=== PATIENT | female | born 1955 | race African-American/Black ===

== ENCOUNTER → 2018-01-27 | Day surgery (SDC) | payer BC ==
[~2018-01-27] MED LIST: LIDOCAINE 1% PF 2 ML VIAL. ID; LIDOCAINE 2% PF Vial for OR 5 ML VIAL.; MORPHINE SULFATE 2 MG/ML DISP.SYRIN. IV; ONDANSETRON PF 4 MG/2 ML VIAL. IV; PROCHLORPERAZINE 10 MG/2 ML VIAL. IV; PROPOFOL 40 ML IV; fentaNYL PF VIAL 100 MCG/2 ML VIAL IV
[2018-01-27] MEDS: IV RINGERS,LACTATED 1000ML 1,000 ML IV (09:12)
== END | disposition home or self-care (01) ==
LOC: ENDOS 08:23
DX: C18.3 Malignant neoplasm of hepatic flexure (principal); K64.0 First degree hemorrhoids; D50.0 Iron deficiency anemia secondary to blood loss (chronic); I10 Essential (primary) hypertension; K21.9 Gastro-esophageal reflux disease without esophagitis; Z87.891 Personal history of nicotine dependence; Z79.899 Other long term (current) drug therapy; Z88.0 Allergy status to penicillin; Z83.3 Family history of diabetes mellitus; M19.90 Unspecified osteoarthritis, unspecified site; Z72.89 Other problems related to lifestyle
CPT/HCPCS: 45380; 45385; 88305; J2001; J2704

== ENCOUNTER → 2018-02-20 | Outpatient (CLI) | payer BC ==
[2018-02-20 13:35] LABS: ADD MAN DIFF? NO
[2018-02-20 13:41] LABS: BASO % 1 % (0-3); EOS % 1 % (0-3); HEMATOCRIT 38.7 % (36.0-47.0); HEMOGLOBIN 12.8 g/dL (12.0-15.5); LYMPH % 30 % (24-48); MEAN CORPUSCULAR HEMOGLOBIN 27 pg (25-35); MEAN CORPUSCULAR HGB CONC 33 g/dL (31-37); MEAN CORPUSCULAR VOLUME 82 fL (79-100); MONO # 0.3 x10^3/uL (0.0-1.1); MONO % 5 % (0-9); NEUT # 4.2 x10^3uL (1.8-7.7); NEUT % 64 % (31-73); PLATELET COUNT 262 x10^3/uL (140-400); RED BLOOD COUNT 4.74 x10^6/uL (3.50-5.40); RED CELL DISTRIBUTION WIDTH 27.1 % (11.5-14.5); WHITE BLOOD COUNT 6.6 x10^3/uL (4.0-11.0)
[2018-02-20 13:49] LABS: ANION GAP 8 (6-14); BLOOD UREA NITROGEN 18 mg/dL (7-20); CARBON DIOXIDE 30 mmol/L (21-32); CHLORIDE 101 mmol/L (98-107); CREATININE 0.9 mg/dL (0.6-1.0); GFR 76.3; GLUCOSE 94 mg/dL (70-99); POTASSIUM 3.1 mmol/L (3.5-5.1); SODIUM 139 mmol/L (136-145)
[2018-02-20 14:43] LABS: ANISOCYTOSIS MARKED; PLT ESTIMATE ADEQUATE (ADEQUATE); SCHISTOCYTES OCC
== END | disposition home or self-care (01) ==
LOC: SURGPAT 11:50
DX: Z01.818 Encounter for other preprocedural examination (principal); C18.9 Malignant neoplasm of colon, unspecified; I45.19 Other right bundle-branch block; R94.31 Abnormal electrocardiogram [ECG] [EKG]
CPT/HCPCS: 36415; 80048; 85025; 93005

== ENCOUNTER → 2018-03-01 | Outpatient (CLI) | payer BC ==
[2018-03-01] MEDS: REGADENOSON 0.4 MG/5 ML DISP.SYRIN. IV (12:01)
== END | disposition home or self-care (01) ==
LOC: NM 15:26
DX: I36.1 Nonrheumatic tricuspid (valve) insufficiency (principal); I10 Essential (primary) hypertension; D50.9 Iron deficiency anemia, unspecified; E87.6 Hypokalemia; Z87.11 Personal history of peptic ulcer disease; Z87.891 Personal history of nicotine dependence
CPT/HCPCS: 78452; 93017; 93306; 96374; 96375; 96376; A9500; J2785

== ENCOUNTER 2018-03-17 05:56 | Inpatient (IN) | payer BC, MEDICARE ==
[~2018-03-17] VITALS: Ht 180.3 cm; Wt 67.1 kg
[2018-03-17] VITALS (18 sets, daily range): BP systolic 101–137; BP diastolic 52–81
[~2018-03-17 05:56] MED LIST changes: +BUT/APAP/CAF PO; +BUTA1CAP57 PO; +CYCL10TA2 PO; +HYDR12.53 PO; -LIDOCAINE 1% PF 2 ML VIAL. ID; -LIDOCAINE 2% PF Vial for OR 5 ML VIAL.; +METO25TA4 PO; -MORPHINE SULFATE 2 MG/ML DISP.SYRIN. IV; +OMEP40CA5 PO; -ONDANSETRON PF 4 MG/2 ML VIAL. IV; +POTA10TA12 PO; -PROCHLORPERAZINE 10 MG/2 ML VIAL. IV; -PROPOFOL 40 ML IV; +TRAM50TA PO; -fentaNYL PF VIAL 100 MCG/2 ML VIAL IV
[2018-03-17] MEDS ORDERED: fentaNYL PF VIAL 100 MCG/2 ML VIAL IV PRN (07:00)
[2018-03-17] MEDS ORDERED: PROCHLORPERAZINE 10 MG/2 ML VIAL. IV PRN (07:00)
[2018-03-17] MEDS ORDERED: LIDOCAINE 1% PF 2 ML VIAL. ID PRN (07:00)
[2018-03-17] MEDS ORDERED: IV RINGERS,LACTATED 1000ML 1,000 ML IV SCH (07:00)
[2018-03-17] MEDS ORDERED: ONDANSETRON PF 4 MG/2 ML VIAL. IV PRN ×2 (07:00→09:45)
[2018-03-17] MEDS ORDERED: SEVOFLURANE > 120 MINUTES. IH ONE (07:26)
[2018-03-17] MEDS ORDERED: DEXAMETHASONE SOD PHOS 20 MG/5 ML VIAL. ONE (07:27)
[2018-03-17] MEDS ORDERED: ONDANSETRON PF 4 MG/2 ML VIAL. ONE (07:27)
[2018-03-17] MEDS ORDERED: PROPOFOL 20 ML IV ONE (07:27)
[2018-03-17] MEDS ORDERED: LIDOCAINE 2% PF Vial for OR 5 ML VIAL. ONE (07:27)
[2018-03-17] MEDS ORDERED: ROCURONIUM 100 MG/10 ML VIAL. ONE (07:27)
[2018-03-17] MEDS ORDERED: NEOSTIGMINE METHYLSULFATE 5 MG/5 ML SYRINGE. ONE (07:27)
[2018-03-17] MEDS ORDERED: GLYCOPYRROLATE 1 MG/5 ML VIAL. ONE (07:27)
[2018-03-17] MEDS ORDERED: fentaNYL PF VIAL 100 MCG/2 ML VIAL ONE ×2 (07:27→08:44)
[2018-03-17] MEDS ORDERED: MIDAZOLAM HCL/PF 2 MG/2 ML VIAL. ONE (07:27)
[2018-03-17] MEDS ORDERED: KETOROLAC 30 MG/ML INJ FOR OR. INJ ONE (07:28)
[2018-03-17] MEDS ORDERED: PHENYLEPHRINE in 0.9% NACL PF 1 MG/10 ML SYRINGE. IV ONE (07:28)
[2018-03-17] MEDS ORDERED: BUPIVACAINE-EPI 0.25%-1:200000 50 ML VIAL. ONE (08:16)
[2018-03-17] MEDS ORDERED: SEVOFLURANE 61 TO 120 MINUTES. IH ONE (09:16)
[2018-03-17] MEDS ORDERED: oxyCODONE/APAP 5/325 1 TAB TABLET PO PRN (09:45)
[2018-03-17] MEDS ORDERED: 0.9 % SODIUM CHLORIDE 10 ML DISP.SYRIN. IV PRN (09:45)
[2018-03-17] MEDS: MORPHINE SULFATE 2 MG/ML VIAL. IV PRN ×4 (09:46→16:22)
--- NOTE | 2018-03-17 09:48 | PDOC4 ---
Operative Note Operative Note Date: 03/17/2018 Preoperative diagnosis: Right colon cancer hepatic flexure Postoperative diagnosis: Same Procedure: Extended right hemicolectomy with primary anastomosis Surgeon: Kiko Mccann Asst.: Braulio Salamanca Specimen: Right colon Dictation: Patient is a 63-year-old female had undergone a colonoscopy was found to have a Apple core lesion at the hepatic flexure this was tattooed at the time procedure of exploratory laparotomy with right colon resection was explained to the patient detail was benefits were also discussed including bleeding infection alternatives to this procedure also discussed with patient seemed understanding gave both verbal and written consent to have the procedure performed. As taken to the operating room placed in supine position general anesthesia was initiated once patient was asleep and intubated her abdomen was prepped and draped in usual sterile fashion using ChloraPrep midline incision was made with a 10 blade scalpel was carried down through the subcutaneous tissue using electrocautery right hemostasis to the fascia fascia was opened electrocautery full length the incision area the abdomen was inspected the liver was palpated no masses were noted. The tumor was palpated at the hepatic flexure right colon was taken down from the white line of [place] with electrocautery freeing up the colon to be brought to the midline a ROSLYN stapler is used to staple and transect the terminal ileum a second load was used to staple and transect the proximal transverse the mesentery was then taken down with the impact LigaSure to the right colon branch of the aorta which was tied with 2-0 silk tie and transected. Specimen was sent for pathology the terminal ileum and mid transverse colon were anastomosed with a side to side stapled anastomosis staple line was oversewn with Vicryl Lembert sutures and the mesentery was closed with a running 3-0 Vicryl suture. The abdomen was then irrigated and suctioned dry fascia was closed with running O looped PDS and the skin reapproximated 4-0 subcuticular Monocryl. Mastisol Steri-Strips and island dressing were applied. Patient was waken expanded in the operating room taken recovery in stable condition all sponge instrument needle counts listed as correct estimated blood loss 30 mL. IRENE DAVIS MD Mar 17, 2018 09:48
[2018-03-17] MEDS: fentaNYL PF VIAL 100 MCG/2 ML VIAL IV PRN ×4 (09:52→10:24)
[2018-03-17] MEDS: IV DEXTROSE 5%-LACT RINGERS 1,000 ML IV SCH (11:57)
[2018-03-17] MEDS: KETOROLAC 15 MG/ML VIAL. IV SCH ×2 (11:57→18:00)
[2018-03-18] MEDS: KETOROLAC 15 MG/ML VIAL. IV SCH ×5 (00:03→23:21)
[2018-03-18 03:00] VITALS: BP 128/76
[2018-03-18] MEDS: IV DEXTROSE 5%-LACT RINGERS 1,000 ML IV SCH ×3 (04:31→20:50)
[2018-03-18] MEDS: MORPHINE SULFATE 2 MG/ML VIAL. IV PRN (04:36)
[2018-03-18 06:03] LABS: BASO % 0 % (0-3); EOS % 0 % (0-3); HEMATOCRIT 35.3 % (36.0-47.0); HEMOGLOBIN 11.5 g/dL (12.0-15.5); LYMPH # 1.5 x10^3/uL (1.0-4.8); LYMPH % 9 % (24-48); MEAN CORPUSCULAR HEMOGLOBIN 28 pg (25-35); MEAN CORPUSCULAR HGB CONC 33 g/dL (31-37); MEAN CORPUSCULAR VOLUME 84 fL (79-100); MONO # 0.9 x10^3/uL (0.0-1.1); MONO % 6 % (0-9); NEUT # 13.6 x10^3uL (1.8-7.7); NEUT % 85 % (31-73); PLATELET COUNT 288 x10^3/uL (140-400); RED BLOOD COUNT 4.18 x10^6/uL (3.50-5.40)
[2018-03-18 07:00] VITALS: BP 124/71
[2018-03-18 09:50] LABS: % BANDS 3 % (0-9); % LYMPHS 14 % (24-48); % MONOS 3 % (0-10); % SEGS 80 % (35-66)
[2018-03-18 09:51] LABS: PLT ESTIMATE ADEQUATE (ADEQUATE)
[2018-03-18 09:52] LABS: ANISOCYTOSIS MOD; OVALOCYTES FEW; POIKILOCYTOSIS PRESENT
[2018-03-18 11:00] VITALS: BP 136/77
--- NOTE | 2018-03-18 11:21 | PDOC ---
PROGRESS NOTES Subjective Subjective doing pretty well, sore, states she's passing gas Objective Objective Vital Signs Date Time Temp Pulse Resp B/P (MAP) Pulse Ox O2 Delivery O2 Flow Rate FiO2 03/18/18 07:00 97.8 97 18 124/71 (88) 99 Room Air 97.8 03/17/18 10:01 10.0 Intake and Output 03/18/18 07:00 Intake Total 3530 ml Output Total 715 ml Balance 2815 ml Intake Oral 30 ml IV Total 2600 ml Other 900 ml Output Urine Total 685 ml Estimated Blood Loss 30 ml Physical Exam Abdomen: Soft (tender with palpation) Assessment Assessment POD 1 right colectomy Plan Plan of Care Ice chips, sips H20, postop care Comment Review of Relevant I have reviewed the following items todd (where applicable) has been applied. Labs Laboratory Tests Test 03/17/18 06:45 03/18/18 05:05 Potassium Level 3.2 mmol/L (3.5-5.1) White Blood Count 16.0 x10^3/uL (4.0-11.0) Red Blood Count 4.18 x10^6/uL (3.50-5.40) Hemoglobin 11.5 g/dL (12.0-15.5) Hematocrit 35.3 % (36.0-47.0) Mean Corpuscular Volume 84 fL (79-100) Mean Corpuscular Hemoglobin 28 pg (25-35) Mean Corpuscular Hemoglobin Concent 33 g/dL (31-37) Red Cell Distribution Width 22.0 % (11.5-14.5) Platelet Count 288 x10^3/uL (140-400) Neutrophils (%) (Auto) 85 % (31-73) Lymphocytes (%) (Auto) 9 % (24-48) Monocytes (%) (Auto) 6 % (0-9) Eosinophils (%) (Auto) 0 % (0-3) Basophils (%) (Auto) 0 % (0-3) Neutrophils # (Auto) 13.6 x10^3uL (1.8-7.7) Lymphocytes # (Auto) 1.5 x10^3/uL (1.0-4.8) Monocytes # (Auto) 0.9 x10^3/uL (0.0-1.1) Eosinophils # (Auto) 0.0 x10^3/uL (0.0-0.7) Basophils # (Auto) 0.0 x10^3/uL (0.0-0.2) Segmented Neutrophils % 80 % (35-66) Band Neutrophils % 3 % (0-9) Lymphocytes % 14 % (24-48) Monocytes % 3 % (0-10) Platelet Estimate Adequate (ADEQUATE) Large Platelets Present Poikilocytosis Present Anisocytosis Mod Ovalocytes Few Laboratory Tests Test 03/18/18 05:05 White Blood Count 16.0 x10^3/uL (4.0-11.0) Red Blood Count 4.18 x10^6/uL (3.50-5.40) Hemoglobin 11.5 g/dL (12.0-15.5) Hematocrit 35.3 % (36.0-47.0) Mean Corpuscular Volume 84 fL (79-100) Mean Corpuscular Hemoglobin 28 pg (25-35) Mean Corpuscular Hemoglobin Concent 33 g/dL (31-37) Red Cell Distribution Width 22.0 % (11.5-14.5) Platelet Count 288 x10^3/uL (140-400) Neutrophils (%) (Auto) 85 % (31-73) Lymphocytes (%) (Auto) 9 % (24-48) Monocytes (%) (Auto) 6 % (0-9) Eosinophils (%) (Auto) 0 % (0-3) Basophils (%) (Auto) 0 % (0-3) Neutrophils # (Auto) 13.6 x10^3uL (1.8-7.7) Lymphocytes # (Auto) 1.5 x10^3/uL (1.0-4.8) Monocytes # (Auto) 0.9 x10^3/uL (0.0-1.1) Eosinophils # (Auto) 0.0 x10^3/uL (0.0-0.7) Basophils # (Auto) 0.0 x10^3/uL (0.0-0.2) Segmented Neutrophils % 80 % (35-66) Band Neutrophils % 3 % (0-9) Lymphocytes % 14 % (24-48) Monocytes % 3 % (0-10) Platelet Estimate Adequate (ADEQUATE) Large Platelets Present Poikilocytosis Present Anisocytosis Mod Ovalocytes Few Medications Current Medications Prochlorperazine Edisylate (Compazine) 5 mg PACU PRN PRN IV NAUSEA, MRX1; Start 03/17/18 at 07:00; Stop 03/18/18 at 06:59; Status DC Lidocaine HCl (Xylocaine-Mpf 1% Vial) 2 ml PRN 1X PRN ID IV START; Start at 07:00; Stop 03/18/18 at 06:59; Status DC Ringer's Solution 1,000 ml @ 30 mls/hr Q24H IV Last administered on 03/17/18at 06:55; Start 03/17/18 at 07:00; Stop 03/17/18 at 18:59; Status DC Morphine Sulfate (Morphine Sulfate) 1 mg PRN Q10MIN PRN IV SEVERE PAIN Last administered on 03/17/18at 10:18; Start 03/17/18 at 07:00; Stop 03/18/18 at 06:59 ; Status DC Fentanyl Citrate (Fentanyl 2ml Vial) 50 mcg PRN Q5MIN PRN IV MODERATE TO SEVERE PAIN Last administered on 03/17/18at 10:24; Start 03/17/18 at 07:00; Stop 03/18/18 at 06:59; Status DC Fentanyl Citrate (Fentanyl 2ml Vial) 25 mcg PRN Q5MIN PRN IV MILD PAIN; Start 03/17/18 at 07:00; Stop 03/18/18 at 06:59; Status DC Ondansetron HCl (Zofran) 4 mg PRN Q6HRS PRN IV NAUSEA/VOMITING Last administered on 03/17/18at 11:57; Start 03/17/18 at 07:00; Stop 03/18/18 at 06:59 ; Status DC Levofloxacin/ Dextrose 100 ml @ 100 mls/hr 1X PREOP PRN IV PRIOR TO SURGERY Last administered on 03/17/18at 08:17; Start 03/17/18 at 08:00 Levofloxacin/ Dextrose 100 ml @ As Directed STK-MED ONCE IV ; Start 03/17/18 at 06:27; Stop 03/17/18 at 06:28; Status DC Sevoflurane (Ultane) 90 ml STK-MED ONCE IH ; Start 03/17/18 at 07:26; Stop 03/17 at 07:27; Status DC Rocuronium [place] (Zemuron) 100 mg STK-MED ONCE .ROUTE ; Start 03/17/18 at 07: 27; Stop 03/17/18 at 07:28; Status DC Fentanyl Citrate (Fentanyl 2ml Vial) 100 mcg STK-MED ONCE .ROUTE ; Start at 07:27; Stop 03/17/18 at 07:28; Status DC Neostigmine Methylsulfate (Neostigmine Methylsulfate) 5 mg STK-MED ONCE .ROUTE ; Start 03/17/18 at 07:27; Stop 03/17/18 at 07:28; Status DC Midazolam HCl (Versed) 2 mg STK-MED ONCE .ROUTE ; Start 03/17/18 at 07:27; Stop 03/17/18 at 07:28; Status DC Glycopyrrolate (Robinul) 1 mg STK-MED ONCE .ROUTE ; Start 03/17/18 at 07:27; Stop 03/17/18 at 07:29; Status DC Propofol 20 ml @ As Directed STK-MED ONCE IV ; Start 03/17/18 at 07:27; Stop 05/25 at 07:29; Status DC Lidocaine HCl (Lidocaine Pf 2% Vial) 5 ml STK-MED ONCE .ROUTE ; Start 03/17/18 at 07:27; Stop 03/17/18 at 07:29; Status DC Dexamethasone Sodium Phosphate (Decadron) 20 mg STK-MED ONCE .ROUTE ; Start 05/25 at 07:27; Stop 03/17/18 at 07:29; Status DC Ondansetron HCl (Zofran) 4 mg STK-MED ONCE .ROUTE ; Start 03/17/18 at 07:27; Stop 03/17/18 at 07:29; Status DC Ketorolac Tromethamine (Toradol For Or Only) 30 mg STK-MED ONCE INJ ; Start 05/25 at 07:28; Stop 03/17/18 at 07:29; Status DC Phenylephrine HCl (PHENYLEPHRINE in 0.9% NACL PF) 1 mg STK-MED ONCE IV ; Start 03/17/18 at 07:28; Stop 03/17/18 at 07:29; Status DC Fentanyl Citrate (Fentanyl 2ml Vial) 100 mcg STK-MED ONCE .ROUTE ; Start at 08:44; Stop 03/17/18 at 08:45; Status DC Sevoflurane (Ultane) 60 ml STK-MED ONCE IH ; Start 03/17/18 at 09:16; Stop 03/17 at 09:17; Status DC Bupivacaine HCl/ Epinephrine Bitart (Marcaine-Epi 0.25%-1:135619) 50 ml STK-MED ONCE .ROUTE Last administered on 03/17/18at 09:20; Start 03/17/18 at 08:16; Stop 03/17/18 at 09:18; Status DC Sodium Chloride (Normal Saline Flush) 3 ml QSHIFT PRN IV AFTER MEDS AND BLOOD DRAWS; Start 03/17/18 at 09:45 Morphine Sulfate (Morphine Sulfate) 2 mg PRN Q3HRS PRN IV PAIN MODERATE Last administered on 03/18/18at 04:36; Start 03/17/18 at 09:45 Oxycodone/ Acetaminophen (Percocet 5/325) 1 tab PRN Q4HRS PRN PO MILD PAIN, 1ST CHOICE; Start 03/17/18 at 09:45 Oxycodone/ Acetaminophen (Percocet 5/325) 2 tab PRN Q4HRS PRN PO MODERATE PAIN , SEVERE PAIN; Start 03/17/18 at 09:45 Ketorolac Tromethamine (Toradol) 15 mg Q6HRS IV Last administered on 03/18/18at 05:57; Start 03/17/18 at 12:00; Stop 03/19/18 at 11:59 Ondansetron HCl (Zofran) 4 mg PRN Q6HRS PRN IV NAUSEA, 1ST CHOICE; Start at 09:45 Dextrose/Lactated Ringer's 1,000 ml @ 75 mls/hr [id number] IV Last administered on 03/18/18at 04:31; Start 03/17/18 at 09:36 Active Scripts Active Reported Cyclobenzaprine Hcl 10 Mg Tablet 10 Mg PO PRN BID PRN [id number]-Ixno 50-300-40 (Butalb/Acetaminophen/Caffeine) 1 Each Capsule 1 Each PO Potassium Chloride 10 Meq Tablet.er 10 Meq PO DAILY Metoprolol Tartrate 25 Mg Tablet 25 Mg PO BID Tramadol Hcl 50 Mg Tablet 50 Mg PO DAILY PRN Hydrochlorothiazide Capsule (Hydrochlorothiazide) 12.5 Mg Capsule 50 Mg PO DAILY08 Omeprazole 40 Mg Capsule.dr 1 Cap PO DAILY08 Vitals/I & O Vital Sign - Last 24 Hours 03/17/18 03/17/18 03/17/18 03/17/18 11:30 11:31 11:45 12:00 Pulse 57 59 62 Resp 16 16 16 B/P (MAP) 128/69 (88) 121/71 (88) 121/70 (87) O2 Delivery Room Air 03/17/18 03/17/18 03/17/18 03/17/18 12:30 13:01 14:02 14:51 Temp 96.1 96.1 Pulse 62 75 78 79 Resp 16 16 16 16 B/P (MAP) 107/63 (78) 115/77 (90) 101/52 (68) 126/71 (89) 03/17/18 03/17/18 03/17/18 03/17/18 15:00 15:00 15:15 15:30 Pulse 77 78 79 82 Resp 16 B/P (MAP) 130/74 (92) 126/71 (89) 125/72 (89) 133/75 (94) 03/17/18 03/17/18 03/17/18 03/17/18 15:45 16:00 16:22 16:30 Pulse 75 78 81 B/P (MAP) 128/74 (92) 134/74 (94) 133/70 (91) Pulse Ox 98 O2 Delivery Room Air 03/17/18 03/17/18 03/17/18 03/17/18 17:09 19:00 19:45 23:00 Temp 97.4 98.3 97.4 98.3 Pulse 88 98 Resp 17 17 B/P (MAP) 137/79 (98) 126/81 (96) Pulse Ox 98 98 97 O2 Delivery Room Air Room Air Room Air 03/18/18 03/18/18 03/18/18 03/18/18 03:00 04:36 05:06 07:00 Temp 97.1 97.8 97.1 97.8 Pulse 79 97 Resp 17 20 20 18 B/P (MAP) 128/76 (93) 124/71 (88) Pulse Ox 99 99 O2 Delivery Room Air Room Air Room Air Room Air Intake and Output 03/17/18 03/17/18 03/18/18 15:00 23:00 07:00 Intake Total 1700 ml 1830 ml Output Total 165 ml 100 ml 450 ml Balance 1535 ml -100 ml 1380 ml BALDOMERO RECIO MD Mar 18, 2018 11:21
[2018-03-18 15:00] VITALS: BP 131/79
[2018-03-18 19:00] VITALS: BP 152/86
[2018-03-18 23:00] VITALS: BP 147/88
[2018-03-19 03:00] VITALS: BP 138/83
[2018-03-19] MEDS: KETOROLAC 15 MG/ML VIAL. IV SCH (05:53)
[2018-03-19 07:00] VITALS: BP 141/86
[2018-03-19 11:00] VITALS: BP 122/81
--- NOTE | 2018-03-19 13:30 | PDOC ---
PROGRESS NOTES Subjective Subjective ok, no flatus, some hematuria after joseph out Objective Objective Vital Signs Date Time Temp Pulse Resp B/P (MAP) Pulse Ox O2 Delivery O2 Flow Rate FiO2 03/19/18 11:00 98.2 102 18 122/81 (95) 98 Room Air 98.2 03/17/18 10:01 10.0 Intake and Output 03/19/18 07:00 Output Total 175 ml Balance -175 ml Output Urine Total 175 ml # Voids 2 Physical Exam Abdomen: Soft Assessment Assessment PO R colectomy Plan Plan of Care Clear liquids, ask Urology to see regarding hematuria Comment Review of Relevant I have reviewed the following items todd (where applicable) has been applied. Labs Laboratory Tests Test 03/18/18 05:05 White Blood Count 16.0 x10^3/uL (4.0-11.0) Red Blood Count 4.18 x10^6/uL (3.50-5.40) Hemoglobin 11.5 g/dL (12.0-15.5) Hematocrit 35.3 % (36.0-47.0) Mean Corpuscular Volume 84 fL (79-100) Mean Corpuscular Hemoglobin 28 pg (25-35) Mean Corpuscular Hemoglobin Concent 33 g/dL (31-37) Red Cell Distribution Width 22.0 % (11.5-14.5) Platelet Count 288 x10^3/uL (140-400) Neutrophils (%) (Auto) 85 % (31-73) Lymphocytes (%) (Auto) 9 % (24-48) Monocytes (%) (Auto) 6 % (0-9) Eosinophils (%) (Auto) 0 % (0-3) Basophils (%) (Auto) 0 % (0-3) Neutrophils # (Auto) 13.6 x10^3uL (1.8-7.7) Lymphocytes # (Auto) 1.5 x10^3/uL (1.0-4.8) Monocytes # (Auto) 0.9 x10^3/uL (0.0-1.1) Eosinophils # (Auto) 0.0 x10^3/uL (0.0-0.7) Basophils # (Auto) 0.0 x10^3/uL (0.0-0.2) Segmented Neutrophils % 80 % (35-66) Band Neutrophils % 3 % (0-9) Lymphocytes % 14 % (24-48) Monocytes % 3 % (0-10) Platelet Estimate Adequate (ADEQUATE) Large Platelets Present Poikilocytosis Present Anisocytosis Mod Ovalocytes Few Medications Current Medications Prochlorperazine Edisylate (Compazine) 5 mg PACU PRN PRN IV NAUSEA, MRX1; Start 03/17/18 at 07:00; Stop 03/18/18 at 06:59; Status DC Lidocaine HCl (Xylocaine-Mpf 1% Vial) 2 ml PRN 1X PRN ID IV START; Start at 07:00; Stop 03/18/18 at 06:59; Status DC Ringer's Solution 1,000 ml @ 30 mls/hr Q24H IV Last administered on 03/17/18at 06:55; Start 03/17/18 at 07:00; Stop 03/17/18 at 18:59; Status DC Morphine Sulfate (Morphine Sulfate) 1 mg PRN Q10MIN PRN IV SEVERE PAIN Last administered on 03/17/18at 10:18; Start 03/17/18 at 07:00; Stop 03/18/18 at 06:59 ; Status DC Fentanyl Citrate (Fentanyl 2ml Vial) 50 mcg PRN Q5MIN PRN IV MODERATE TO SEVERE PAIN Last administered on 03/17/18at 10:24; Start 03/17/18 at 07:00; Stop 03/18/18 at 06:59; Status DC Fentanyl Citrate (Fentanyl 2ml Vial) 25 mcg PRN Q5MIN PRN IV MILD PAIN; Start 03/17/18 at 07:00; Stop 03/18/18 at 06:59; Status DC Ondansetron HCl (Zofran) 4 mg PRN Q6HRS PRN IV NAUSEA/VOMITING Last administered on 03/17/18at 11:57; Start 03/17/18 at 07:00; Stop 03/18/18 at 06:59 ; Status DC Levofloxacin/ Dextrose 100 ml @ 100 mls/hr 1X PREOP PRN IV PRIOR TO SURGERY Last administered on 03/17/18at 08:17; Start 03/17/18 at 08:00 Levofloxacin/ Dextrose 100 ml @ As Directed STK-MED ONCE IV ; Start 03/17/18 at 06:27; Stop 03/17/18 at 06:28; Status DC Sevoflurane (Ultane) 90 ml STK-MED ONCE IH ; Start 03/17/18 at 07:26; Stop 03/17 at 07:27; Status DC Rocuronium [place] (Zemuron) 100 mg STK-MED ONCE .ROUTE ; Start 03/17/18 at 07: 27; Stop 03/17/18 at 07:28; Status DC Fentanyl Citrate (Fentanyl 2ml Vial) 100 mcg STK-MED ONCE .ROUTE ; Start at 07:27; Stop 03/17/18 at 07:28; Status DC Neostigmine Methylsulfate (Neostigmine Methylsulfate) 5 mg STK-MED ONCE .ROUTE ; Start 03/17/18 at 07:27; Stop 03/17/18 at 07:28; Status DC Midazolam HCl (Versed) 2 mg STK-MED ONCE .ROUTE ; Start 03/17/18 at 07:27; Stop 03/17/18 at 07:28; Status DC Glycopyrrolate (Robinul) 1 mg STK-MED ONCE .ROUTE ; Start 03/17/18 at 07:27; Stop 03/17/18 at 07:29; Status DC Propofol 20 ml @ As Directed STK-MED ONCE IV ; Start 03/17/18 at 07:27; Stop 05/25 at 07:29; Status DC Lidocaine HCl (Lidocaine Pf 2% Vial) 5 ml STK-MED ONCE .ROUTE ; Start 03/17/18 at 07:27; Stop 03/17/18 at 07:29; Status DC Dexamethasone Sodium Phosphate (Decadron) 20 mg STK-MED ONCE .ROUTE ; Start 05/25 at 07:27; Stop 03/17/18 at 07:29; Status DC Ondansetron HCl (Zofran) 4 mg STK-MED ONCE .ROUTE ; Start 03/17/18 at 07:27; Stop 03/17/18 at 07:29; Status DC Ketorolac Tromethamine (Toradol For Or Only) 30 mg STK-MED ONCE INJ ; Start 05/25 at 07:28; Stop 03/17/18 at 07:29; Status DC Phenylephrine HCl (PHENYLEPHRINE in 0.9% NACL PF) 1 mg STK-MED ONCE IV ; Start 03/17/18 at 07:28; Stop 03/17/18 at 07:29; Status DC Fentanyl Citrate (Fentanyl 2ml Vial) 100 mcg STK-MED ONCE .ROUTE ; Start at 08:44; Stop 03/17/18 at 08:45; Status DC Sevoflurane (Ultane) 60 ml STK-MED ONCE IH ; Start 03/17/18 at 09:16; Stop 03/17 at 09:17; Status DC Bupivacaine HCl/ Epinephrine Bitart (Marcaine-Epi 0.25%-1:052499) 50 ml STK-MED ONCE .ROUTE Last administered on 03/17/18at 09:20; Start 03/17/18 at 08:16; Stop 03/17/18 at 09:18; Status DC Sodium Chloride (Normal Saline Flush) 3 ml QSHIFT PRN IV AFTER MEDS AND BLOOD DRAWS; Start 03/17/18 at 09:45 Morphine Sulfate (Morphine Sulfate) 2 mg PRN Q3HRS PRN IV PAIN MODERATE Last administered on 03/18/18at 04:36; Start 03/17/18 at 09:45 Oxycodone/ Acetaminophen (Percocet 5/325) 1 tab PRN Q4HRS PRN PO MILD PAIN, 1ST CHOICE; Start 03/17/18 at 09:45 Oxycodone/ Acetaminophen (Percocet 5/325) 2 tab PRN Q4HRS PRN PO MODERATE PAIN , SEVERE PAIN; Start 03/17/18 at 09:45 Ketorolac Tromethamine (Toradol) 15 mg Q6HRS IV Last administered on 03/19/18at 05:53; Start 03/17/18 at 12:00; Stop 03/19/18 at 11:59; Status DC Ondansetron HCl (Zofran) 4 mg PRN Q6HRS PRN IV NAUSEA, 1ST CHOICE; Start at 09:45 Dextrose/Lactated Ringer's 1,000 ml @ 75 mls/hr [id number] IV Last administered on 03/18/18at 20:50; Start 03/17/18 at 09:36 Active Scripts Active Reported Cyclobenzaprine Hcl 10 Mg Tablet 10 Mg PO PRN BID PRN [id number]-Ldmtfwpa-Avrg 50-300-40 (Butalb/Acetaminophen/Caffeine) 1 Each Capsule 1 Each PO Potassium Chloride 10 Meq Tablet.er 10 Meq PO DAILY Metoprolol Tartrate 25 Mg Tablet 25 Mg PO BID Tramadol Hcl 50 Mg Tablet 50 Mg PO DAILY PRN Hydrochlorothiazide Capsule (Hydrochlorothiazide) 12.5 Mg Capsule 50 Mg PO DAILY08 Omeprazole 40 Mg Capsule.dr 1 Cap PO DAILY08 Vitals/I & O Vital Sign - Last 24 Hours 03/18/18 03/18/18 03/18/18 03/18/18 15:00 19:00 20:00 23:00 Temp 98.0 99.0 99.4 98.0 99.0 99.4 Pulse 116 113 112 Resp 18 B/P (MAP) 131/79 (96) 152/86 (108) 147/88 (107) Pulse Ox 98 99 98 O2 Delivery Room Air Room Air Room Air Room Air 03/19/18 03/19/18 03/19/18 03/19/18 03:00 07:00 07:50 11:00 Temp 98.6 98.5 98.2 98.6 98.5 98.2 Pulse 106 101 102 Resp 18 B/P (MAP) 138/83 (101) 141/86 (104) 122/81 (95) Pulse Ox 97 98 98 O2 Delivery Room Air Room Air Room Air Room Air Intake and Output 03/18/18 03/18/18 03/19/18 15:00 23:00 07:00 Output Total 175 ml Balance -175 ml BALDOMERO RECIO MD Mar 19, 2018 13:30
[2018-03-19] MEDS: IV DEXTROSE 5%-LACT RINGERS 1,000 ML IV SCH ×2 (14:56→22:55)
[2018-03-19 15:00] VITALS: BP 145/93
[2018-03-19 19:00] VITALS: BP 153/99
[2018-03-19] MEDS: oxyCODONE/APAP 5/325 1 TAB TABLET PO PRN (22:57)
[2018-03-19 23:00] VITALS: BP 144/85
[2018-03-20 03:00] VITALS: BP 123/83
[2018-03-20 07:00] VITALS: BP 110/79
--- NOTE | 2018-03-20 08:15 | PDOC ---
SURGICAL PROGRESS NOTE Subjective Doing well, tolerating liquids, no BM yet Vital Signs Vital Signs Date Time Temp Pulse Resp B/P (MAP) Pulse Ox O2 Delivery O2 Flow Rate FiO2 03/20/18 03:00 98.2 97 18 123/83 (96) 99 Room Air 98.2 03/20/18 00:00 10.0 I&O Intake and Output 03/20/18 07:00 Intake Total 200 ml Output Total 400 ml Balance -200 ml Intake Oral 200 ml Output Urine Total 400 ml # Voids 3 PATIENT HAS A AGUIAR: No General: Alert, Oriented X3, Cooperative, No acute distress Abdomen: Normal bowel sounds, Soft, No tenderness, Other (wound c/d/i) Assessment/Plan S/P colon resection Awaiting return of bowel function to adv diet. IRENE DAVIS MD Mar 20, 2018 08:15
[2018-03-20 09:10] LABS: BASO % 0 % (0-3); EOS # 0.2 x10^3/uL (0.0-0.7); EOS % 2 % (0-3); HEMATOCRIT 30.3 % (36.0-47.0); HEMOGLOBIN 9.8 g/dL (12.0-15.5); LYMPH # 1.7 x10^3/uL (1.0-4.8); LYMPH % 18 % (24-48); MEAN CORPUSCULAR HEMOGLOBIN 28 pg (25-35); MEAN CORPUSCULAR HGB CONC 32 g/dL (31-37); MEAN CORPUSCULAR VOLUME 85 fL (79-100); MONO # 0.5 x10^3/uL (0.0-1.1); MONO % 6 % (0-9); NEUT # 7.1 x10^3uL (1.8-7.7); NEUT % 75 % (31-73); PLATELET COUNT 243 x10^3/uL (140-400); RED BLOOD COUNT 3.56 x10^6/uL (3.50-5.40); RED CELL DISTRIBUTION WIDTH 20.7 % (11.5-14.5); WHITE BLOOD COUNT 9.5 x10^3/uL (4.0-11.0)
[2018-03-20] MEDS: METOPROLOL TART IMMED RELEASE 25 MG TABLET. PO SCH ×2 (09:10→21:36)
[2018-03-20 09:19] LABS: CALCIUM 8.3 mg/dL (8.5-10.1); CREATININE 0.7 mg/dL (0.6-1.0); GFR 101.6
[2018-03-20] MEDS ORDERED: POTASSIUM CHLORIDE 20 MEQ TABLET.ER. PO ONE (09:45)
--- NOTE | 2018-03-20 10:26 | PDOC2 ---
JENNIFER WILKINSON CARTON STAMPER 03/20/18 1026: UROLOGY CONSULT Date of Consult Date of Consult DATE: 03/20/18 TIME: 10:19 Reason for Consult Reason for Consult: Gross Hematuria Referring Physician Referring Physician: Dr. Fields Identification/Chief Complaint Chief Complaint Gross Hematuria Source Source: Caregiver, Chart review, Patient History of Present Illness Reason for Visit: 63 year old pleasant black female was admitted on January 15 after hemicolectomy with primary anastomosis with Dr. Hoover, General Surgeon. After the operation on Tuesday, her catheter was removed and she noticed bloody urine with one long stringy clot. It continued until late Tuesday night. On Tuesday her urine was clear yellow, but then the bloody urine started back up again on Tuesday and has continued through this morning. The urine resembles red wine, but she has not noticed any clots to go with it, and she denies dysuria or flank pain. She denies history of kidney problems or kidney stones,and other than some mild surgical pain is feeling well overall. She did smoke from about age 18 to age 39, 1/2 pack per day but quit in her early 40's. She has never seen a urologist that she can remember or had a cystoscopy for any reason. Past Medical History Cardiovascular: HTN Pulmonary: Other GI: GERD Heme/Onc: No pertinent hx Hepatobiliary: No pertinent hx Musculoskeletal: Osteoarthritis Rheumatologic: No pertinent hx Infectious disease: No pertinent hx Renal/: No pertinent hx Endocrine: No pertinent hx Grav: 0 Para: 0 Family History Family History: Diabetes Social History Quit (When she turned 39, smoked 1/2 pack a day) ALCOHOL: none Drugs: None Lives: Alone Domestic Violence: Neg Current Problem List Problems: (1) Colon cancer Current Medications Current Medications Current Medications Metoprolol Tartrate (Lopressor) 25 mg BID PO Last administered on 03/20/18at 09: 10; Start 03/20/18 at 09:00 Potassium Chloride (Klor-Con) 40 meq 1X ONCE PO ; Start 03/20/18 at 09:45; Stop 03/20/18 at 09:53; Status DC Allergies Allergies: Coded Allergies: Penicillins (Verified Allergy, Intermediate, SWELL AND ITCH, 03/17/18) adhesive tape (Verified Allergy, Unknown, 03/17/18) RED SKIN ROS Review Of Systems: CONSTITUTIONAL: No fever or chills EYES: No recent changes SKIN: No rash or itching CARDIOVASCULAR: No chest pain, syncope, palpitations, or edema RESPIRATORY: No SOB or cough GASTROINTESTINAL: No nausea, vomiting or abdominal pain NEUROLOGICAL: No headaches or weakness ENDOCRINE: No cold or heat intolerance GENITOURINARY: + hematuria MUSCULOSKELETAL: No back pain or joint pain LYMPHATICS: No enlarged lymph nodes PSYCHIATRIC: No anxiety or depression Physical Exam Physical Exam: General: Pleasant, no acute distress, well groomed Eyes: conjunctiva anicteric, eyes full range of motion ENT: moist oral mucosa, normal dentition Neck: Trachea midline, no masses Respiratory: unlabored breathing, not using accessory muscles, Abdomen: mild tenderness round surgical site, which is midline abd, secured with steri strips and CDI and without signs or symptoms of infection. Skin: no rashes or skin lesions on visualized skin Psych: normal mood, affect. Alert and oriented x 3. Urine: very dark in toilet, like red wine. No clots visible in toilet. Vitals VITALS Vital Signs Date Time Temp Pulse Resp B/P (MAP) Pulse Ox O2 Delivery O2 Flow Rate FiO2 03/20/18 09:10 98 110/79 03/20/18 07:00 98.2 16 96 Room Air 98.2 03/20/18 00:00 10.0 Labs Labs Laboratory Tests Test 03/20/18 08:20 White Blood Count 9.5 x10^3/uL (4.0-11.0) Red Blood Count 3.56 x10^6/uL (3.50-5.40) Hemoglobin 9.8 g/dL (12.0-15.5) Hematocrit 30.3 % (36.0-47.0) Mean Corpuscular Volume 85 fL (79-100) Mean Corpuscular Hemoglobin 28 pg (25-35) Mean Corpuscular Hemoglobin Concent 32 g/dL (31-37) Red Cell Distribution Width 20.7 % (11.5-14.5) Platelet Count 243 x10^3/uL (140-400) Neutrophils (%) (Auto) 75 % (31-73) Lymphocytes (%) (Auto) 18 % (24-48) Monocytes (%) (Auto) 6 % (0-9) Eosinophils (%) (Auto) 2 % (0-3) Basophils (%) (Auto) 0 % (0-3) Neutrophils # (Auto) 7.1 x10^3uL (1.8-7.7) Lymphocytes # (Auto) 1.7 x10^3/uL (1.0-4.8) Monocytes # (Auto) 0.5 x10^3/uL (0.0-1.1) Eosinophils # (Auto) 0.2 x10^3/uL (0.0-0.7) Basophils # (Auto) 0.0 x10^3/uL (0.0-0.2) Sodium Level 139 mmol/L (136-145) Potassium Level 3.0 mmol/L (3.5-5.1) Chloride Level 104 mmol/L (98-107) Carbon Dioxide Level 29 mmol/L (21-32) Anion Gap 6 (6-14) Blood Urea Nitrogen 10 mg/dL (7-20) Creatinine 0.7 mg/dL (0.6-1.0) Estimated GFR (Cockcroft-Gault) 101.6 Glucose Level 121 mg/dL (70-99) Calcium Level 8.3 mg/dL (8.5-10.1) Laboratory Tests Test 03/20/18 08:20 White Blood Count 9.5 x10^3/uL (4.0-11.0) Red Blood Count 3.56 x10^6/uL (3.50-5.40) Hemoglobin 9.8 g/dL (12.0-15.5) Hematocrit 30.3 % (36.0-47.0) Mean Corpuscular Volume 85 fL (79-100) Mean Corpuscular Hemoglobin 28 pg (25-35) Mean Corpuscular Hemoglobin Concent 32 g/dL (31-37) Red Cell Distribution Width 20.7 % (11.5-14.5) Platelet Count 243 x10^3/uL (140-400) Neutrophils (%) (Auto) 75 % (31-73) Lymphocytes (%) (Auto) 18 % (24-48) Monocytes (%) (Auto) 6 % (0-9) Eosinophils (%) (Auto) 2 % (0-3) Basophils (%) (Auto) 0 % (0-3) Neutrophils # (Auto) 7.1 x10^3uL (1.8-7.7) Lymphocytes # (Auto) 1.7 x10^3/uL (1.0-4.8) Monocytes # (Auto) 0.5 x10^3/uL (0.0-1.1) Eosinophils # (Auto) 0.2 x10^3/uL (0.0-0.7) Basophils # (Auto) 0.0 x10^3/uL (0.0-0.2) Sodium Level 139 mmol/L (136-145) Potassium Level 3.0 mmol/L (3.5-5.1) Chloride Level 104 mmol/L (98-107) Carbon Dioxide Level 29 mmol/L (21-32) Anion Gap 6 (6-14) Blood Urea Nitrogen 10 mg/dL (7-20) Creatinine 0.7 mg/dL (0.6-1.0) Estimated GFR (Cockcroft-Gault) 101.6 Glucose Level 121 mg/dL (70-99) Calcium Level 8.3 mg/dL (8.5-10.1) Assessment/Plan Assessment/Plan Very pleasant 63 year old female recovering from colon surgery and has just noticed gross hematuria times two days. We will get a CTU for her today on an urgent basis given nature of blood in toilet (very dark, wine colored). Encouraged patient to notify staff of any changes or increase in bleeding. Pt will also need a cystoscopy at some point. Discussed case with Dr. Hogue, who will check on patient later today or tomorrow. All questions answered, will follow. LOUIE HOGUE MD 03/20/18 0115: UROLOGY CONSULT Assessment/Plan Assessment/Plan 63 yo F with intermittent gross hematuria following catheter removal. No prior hx. No personal or family h/o pathology. Long time reformed cigarette user. 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 CT-U pending. Will arrange for outpatient cystoscopy, but hematuria is likely related to catheter trauma given the temporal relationship to its onset. JENNIFER WILKINSON APRN Mar 20, 2018 10:26 LOUIE HOGUE MD Mar 20, 2018 16:08
[2018-03-20] MEDS ORDERED: CONTRAST GIVEN. MC PRN (11:00)
[2018-03-20] MEDS ORDERED: IOHEXOL 300 MG/ML 100ML VIAL. IV ONE (11:00)
[2018-03-20] MEDS: oxyCODONE/APAP 5/325 1 TAB TABLET PO PRN ×2 (12:34→21:42)
--- NOTE | 2018-03-20 14:31 | RAD ---
CLINICAL HISTORY: GROSS HEMATURIA. COMPARISON: 02/03/2018 TECHNIQUE: CT of the abdomen performed before and after the administration of 75 mL of Omnipaque 300 intravenous contrast. Delayed images were also obtained through the abdomen and pelvis.. Axial, coronal and sagittal reformatted images were generated. PQRS compliance Statement One or more of the following individualized dose reduction techniques were utilized for this study: 1. Automated exposure control 2. Adjustment of the mA and/or kV according to patient size 3. Use of iterative reconstruction technique FINDINGS: Bibasilar patchy parenchymal opacities, likely atelectasis. Small right pleural effusion. No focal liver lesion. High density material layering dependently within the gallbladder likely sludge. Mild fat infiltration about the gallbladder wall likely reactive from recent postsurgical change. No renal calculus. Symmetric nephrograms. No focal renal lesion. No hydronephrosis. On the excretory phase images, no definite ureteral lesion is identified. Limited evaluation of the partially distended bladder which is otherwise also unremarkable. Postoperative changes of partial right colonic resection with associated stenosis is seen. Moderate fat infiltration is seen in this region with associated several foci of gas extending along the right lateral conal fascia as well as superiorly just deep to the chest wall. No abnormal small or large bowel dilatation. No abdominal pelvic ascites. Multilevel degenerative changes of the spine are seen. Leftward curvature of the lumbar spine is seen apex L3. IMPRESSION: 1. No definite renal lesion is identified. Limited evaluation of the partially distended bladder which is otherwise also unremarkable. 2. Changes of right colon resection with associated anastomosis. Several foci of free intraperitoneal gas are seen along the right hemiabdomen and below the abdominal wall, possibly from recent surgical state although anastomotic leak is not excluded. No definite associated free or loculated fluid collection is seen in the abdomen or pelvis. Electronically signed by: Cam Oropeza MD (03/20/2018 2:27 PM) [facility]
[2018-03-20 15:00] VITALS: BP 112/71
[2018-03-20] MEDS: IV DEXTROSE 5%-LACT RINGERS 1,000 ML IV SCH (17:36)
[2018-03-20 19:00] VITALS: BP 145/83
[2018-03-20 23:00] VITALS: BP 131/79
[2018-03-21 03:00] VITALS: BP 133/77
[2018-03-21 07:15] VITALS: BP 115/73
[2018-03-21] MEDS: IV DEXTROSE 5%-LACT RINGERS 1,000 ML IV SCH (07:36)
[2018-03-21] MEDS: METOPROLOL TART IMMED RELEASE 25 MG TABLET. PO SCH ×2 (09:00→20:40)
--- NOTE | 2018-03-21 09:29 | PDOC ---
MARCY MONTAGUE INVOICING MACHINE OPERATOR 03/21/18 0929: SURGICAL PROGRESS NOTE Subjective + flatus no n/v tolerating clears Vital Signs Vital Signs Date Time Temp Pulse Resp B/P (MAP) Pulse Ox O2 Delivery O2 Flow Rate FiO2 03/21/18 09:00 85 115/73 03/21/18 07:45 Room Air 03/21/18 07:15 98.7 16 95 98.7 I&O Intake and Output 03/21/18 07:00 Intake Total 700 ml Balance 700 ml Intake Oral 700 ml # Voids 1 General: Alert, Oriented X3, Cooperative, No acute distress Abdomen: Soft, Other (incision c/d/i, no erythema) Labs Laboratory Tests Test 03/20/18 08:20 03/21/18 03:30 White Blood Count 9.5 x10^3/uL (4.0-11.0) Red Blood Count 3.56 x10^6/uL (3.50-5.40) Hemoglobin 9.8 g/dL (12.0-15.5) Hematocrit 30.3 % (36.0-47.0) Mean Corpuscular Volume 85 fL (79-100) Mean Corpuscular Hemoglobin 28 pg (25-35) Mean Corpuscular Hemoglobin Concent 32 g/dL (31-37) Red Cell Distribution Width 20.7 % (11.5-14.5) Platelet Count 243 x10^3/uL (140-400) Neutrophils (%) (Auto) 75 % (31-73) Lymphocytes (%) (Auto) 18 % (24-48) Monocytes (%) (Auto) 6 % (0-9) Eosinophils (%) (Auto) 2 % (0-3) Basophils (%) (Auto) 0 % (0-3) Neutrophils # (Auto) 7.1 x10^3uL (1.8-7.7) Lymphocytes # (Auto) 1.7 x10^3/uL (1.0-4.8) Monocytes # (Auto) 0.5 x10^3/uL (0.0-1.1) Eosinophils # (Auto) 0.2 x10^3/uL (0.0-0.7) Basophils # (Auto) 0.0 x10^3/uL (0.0-0.2) Sodium Level 139 mmol/L (136-145) Potassium Level 3.0 mmol/L (3.5-5.1) 3.7 mmol/L (3.5-5.1) Chloride Level 104 mmol/L (98-107) Carbon Dioxide Level 29 mmol/L (21-32) Anion Gap 6 (6-14) Blood Urea Nitrogen 10 mg/dL (7-20) Creatinine 0.7 mg/dL (0.6-1.0) Estimated GFR (Cockcroft-Gault) 101.6 Glucose Level 121 mg/dL (70-99) Calcium Level 8.3 mg/dL (8.5-10.1) Laboratory Tests Test 03/21/18 03:30 Potassium Level 3.7 mmol/L (3.5-5.1) Assessment/Plan s/p colon resection hematuria clearing improving bowel function advance diet BALDOMERO RECIO MD 03/21/18 0933: SURGICAL PROGRESS NOTE Assessment/Plan Agree with above MARCY MONTAGUE APRN Mar 21, 2018 09:29 BALDOMERO RECIO MD Mar 21, 2018 09:33
[2018-03-21 11:03] VITALS: BP 115/51
--- NOTE | 2018-03-21 12:17 | PDOC ---
SUBJECTIVE Subjective Pt doing well, no more dysuria or hematuria. She still feels like she is emptying her bladder well. She is feeling stronger today. OBJECTIVE Objective Physical Exam: General appearance: Alert and Oriented Head: Normocephalic, without obvious abnormality Eyes: conjunctivae/corneas clear. PERRL, EOM's intact. Fundi benign Back: negative, no CVA pain Lungs: regular respirations, non labored breathing Abdomen: soft, non-tender, midline abd surgical wound secured with steri strips. No signs or symptoms of infection noted. Vital Signs Vital Signs Date Time Temp Pulse Resp B/P (MAP) Pulse Ox O2 Delivery O2 Flow Rate FiO2 03/21/18 11:03 98.3 85 18 115/51 (72) 96 Room Air 98.3 03/21/18 09:00 85 115/73 03/21/18 07:45 Room Air 03/21/18 07:15 98.7 85 16 115/73 (87) 95 Room Air 98.7 03/21/18 03:00 98.9 83 18 133/77 (95) 96 Room Air 98.9 03/20/18 23:00 99.1 85 18 131/79 (96) 95 Room Air 99.1 03/20/18 22:42 18 Room Air 03/20/18 21:42 16 Room Air 03/20/18 21:36 109 145/109 03/20/18 20:00 Room Air 03/20/18 19:00 98.9 109 18 145/83 (103) 98 Room Air 98.9 03/20/18 15:00 98.0 90 16 112/71 (85) 98 Room Air 98.0 03/20/18 12:34 Room Air I & O Intake and Output 03/21/18 07:00 Intake Total 700 ml Balance 700 ml Intake Oral 700 ml # Voids 1 PHYSICAL EXAM Physical Exam Physical Exam: General appearance: Alert and Oriented Head: Normocephalic, without obvious abnormality Eyes: conjunctivae/corneas clear. PERRL, EOM's intact. Fundi benign Back: negative, no CVA pain Lungs: regular respirations, non labored breathing Abdomen: soft, non-tender, midline abd surgical wound secured with steri strips. No signs or symptoms of infection noted. ASSESSMENT/PLAN Assessment/Plan Discussed CTU results with patient-No source of hematuria identified on CT scan. Still recommend cystoscopy-Appointment secured for cysto on 04/17/18 at 0940. Importance of completing cystoscopy appointment explained in detail to patient. Appointment card given to patient. All questions answered. Will follow peripherally until discharge. COMMENT Lab Laboratory Tests Test 03/21/18 03:30 Potassium Level 3.7 mmol/L (3.5-5.1) Imaging IMPRESSION: 1. No definite renal lesion is identified. Limited evaluation of the partially distended bladder which is otherwise also unremarkable. 2. Changes of right colon resection with associated anastomosis. Several foci of free intraperitoneal gas are seen along the right hemiabdomen and below the abdominal wall, possibly from recent surgical state although anastomotic leak is not excluded. No definite associated free or loculated fluid collection is seen in the abdomen or pelvis. JENNIFER WILKINSON COMMISSARY HELPER Mar 21, 2018 12:17
[2018-03-21] MEDS: oxyCODONE/APAP 5/325 1 TAB TABLET PO PRN ×2 (12:33→22:41)
[2018-03-21 15:04] VITALS: BP 116/75
[2018-03-21 19:00] VITALS: BP 139/86
[2018-03-21 23:00] VITALS: BP 142/88
[2018-03-22 02:54] VITALS: BP 114/79
[2018-03-22 07:15] VITALS: BP 119/79
[2018-03-22] MEDS: METOPROLOL TART IMMED RELEASE 25 MG TABLET. PO SCH ×2 (08:52→21:03)
--- NOTE | 2018-03-22 09:14 | PATHOLOGY ---
[facility] Accession Number: [id number] . 01 Material submitted: . RIGHT COLON . Clinical history: . Colon cancer. . 02 Diagnosis: Distal ileum, cecum, and ascending colon with attached mesocolon, right hemicolectomy: - INVASIVE COLORECTAL ADENOCARCINOMA, MODERATELY DIFFERENTIATED, FORMING A TUMOR MASS MEASURING UP TO 6.5 CM IN GREATEST DIMENSION AND ARISING WITHIN A TUBULOVILLOUS ADENOMA, WITH TUMOR INVASION THROUGH MUSCULAR WALL INTO MESOCOLON. - Twenty-three mesocolic lymph nodes negative for tumor. - Proximal (distal ileum) and distal (ascending colon) margins of resection negative for tumor. - Circumferential radial mesocolic margin of resection negative for tumor. - Focal tattooing of colon distal to tumor. - Adiposity of ileocecal valve. - Fibrofatty obliteration of appendiceal lumen. (JPM/db; 03/21/18) . . Surgical Pathology Cancer Case Summary . COLON AND RECTUM: . Procedure: ___ Right hemicolectomy . Tumor Site: ___ Ascending colon . Tumor Size: Greatest dimension: 6.5 cm . Macroscopic Tumor Perforation: ___ Not identified . Histologic Type: ___ Adenocarcinoma . Histologic Grade: ___ Moderately-differentiated . Tumor Extension ___ Tumor invades through the muscularis propria into pericolorectal tissue . Margins: ___ All margins are uninvolved by invasive carcinoma, high-grade dysplasia, intramucosal adenocarcinoma, and adenoma Margins examined: Proximal, distal, circumferential radial margins Distance of invasive carcinoma from closest margin: 4.6 cm Specify closest margin: Distal margin . Treatment Effect: ___ No known presurgical therapy . Lymphovascular Invasion ___ Not identified . Perineural Invasion ___ Not identified . Type of Polyp in Which Invasive Carcinoma Arose: ___ Tubulovillous adenoma . Tumor Deposits: ___ Not identified . Regional Lymph Nodes . Number of Lymph Nodes Involved: 0 Number of Lymph Nodes Examined: 23 . Pathologic Stage Classification . Primary Tumor (pT): ___ pT3: Tumor invades through the muscularis propria into pericolorectal tissues . Regional Lymph Nodes (pN) ___ pN0: No regional lymph node metastasis . Additional Pathologic Findings: ___ None identified . . (JPM:rosario; 03/21/2018) LBQ/03/21/2018 . 02 Electronically signed: . Niranjan Mercedes MD, Pathologist NPI- [id number] . 01 Gross description: . Received in formalin labeled "Mary Salmon, right colon" is a colon resection specimen consisting of a portion of terminal ileum (5.7 x 1.6 cm), cecum (7.2 x 5.5 x 4.0 cm), vermiform appendix (8.5 x 0.7 cm), and proximal colon (10.3 x 3.5 cm). The serosa is pink-harrison and smooth. Staple lines are present at the proximal and distal margins. The specimen is opened to reveal a pink-harrison firm exophytic mass within the proximal colon which measures 6.5 cm in width and 5.2 cm in length. The mass is located 12.5 cm to the proximal margin, 4.6 cm to the distal margin, and 5.7 cm to the closest mesenteric margin. Tattoo ink is present just distal to the mass. Upon sectioning, the mass has a greatest third dimension of 2.1 cm, and grossly invades into the surrounding pericolonic fat. . The uninvolved mucosa is pink-harrison with unremarkable folding. The appendix is removed and serially sectioned to reveal no perforations or fecaliths, and a luminal diameter of 0.3 cm. The mesenteric fat surrounding the colon is palpated to reveal multiple pink-harrison possible lymph nodes ranging from 0.4-1.1 cm in greatest dimension. Motor Coach Chauffeur sections are submitted as follows . A1 proximal margin A2 distal margin A3 closest mesenteric margin, perpendicular sections (true margin inked black) A4 franchise sales representative ileocecal valve A5 franchise sales representative appendix A6-A7 mass with deepest invasion A8 mass to serosa (inked blue) A9 mass to uninvolved colonic mucosa A10-A11 additional sections of mass A12-A14 multiple lymph nodes in each cassette A15 two bisected lymph nodes, one inked black. [place] [place] SYC/SYC . 02 Pathologist provided ICD-10: C18.9, D12.6 . 02 CPT . 639932 Performed at: 01 [facility] [address], [place] [id number] MD eJremy Suarez MD Phone: [phone] Performed at: 02 [facility] [address] [place], [place] [id number] MD Niranjan Mercedes MD Phone: [phone]
[2018-03-22 11:04] VITALS: BP 109/71
--- NOTE | 2018-03-22 11:36 | PDOC ---
SURGICAL PROGRESS NOTE Subjective Patient filling well tolerating regular diet and has had bowel movements states that she hasn't been up walking much Vital Signs Vital Signs Date Time Temp Pulse Resp B/P (MAP) Pulse Ox O2 Delivery O2 Flow Rate FiO2 03/22/18 11:04 98.3 73 20 109/71 (84) 97 Room Air 98.3 I&O Intake and Output 03/22/18 07:00 Intake Total 120 ml Output Total 1 ml Balance 119 ml Intake Oral 120 ml Stool Total 1 ml # Voids 6 # Bowel Movements 2 PATIENT HAS A AGUIAR: No General: Alert, Oriented X3, Cooperative, No acute distress Abdomen: Normal bowel sounds, Soft, No tenderness, Other (wounds clean dry and intact) Labs Laboratory Tests Test 03/21/18 03:30 Potassium Level 3.7 mmol/L (3.5-5.1) Assessment/Plan That is post right colectomy Advance activities plan for discharge in IRENE Daley MD Mar 22, 2018 11:36
[2018-03-22 15:03] VITALS: BP 129/78
[2018-03-22 19:00] VITALS: BP 139/81
[2018-03-22] MEDS: oxyCODONE/APAP 5/325 1 TAB TABLET PO PRN (19:22)
[2018-03-22 23:00] VITALS: BP 121/74
[2018-03-23 03:00] VITALS: BP 119/67
[2018-03-23 07:00] VITALS: BP 125/66
--- NOTE | 2018-03-23 08:23 | DISCH ---
DISCHARGE INSTRUCTIONS Condition on Discharge Condition on Discharge: Stable Activity After Discharge Activity Instructions for Disc: Activity as tolerated Other activity instructions: ok to shower, no tub baths, pat incision dry Lifting Instructions after Dis: No heavy lifting, No pulling or pushing (20 lbs ) Exercise Instruction after Dis: Progress as tolerated Driving Instructions after Dis: Do not drive today (no driving while taking pain meds ) Weight Bearing Status after Di: As tolerated Diet after Discharge Diet after Discharge: Regular Diet Texture: Regular Wound Incision Care Wound/Incision Care: No wound care needed Contacting the after DC Call your doctor for: Concerns you may have Follow-Up Follow up with: Dr Hoover 2 weeks, call to schedule [phone] MARCY MONTAGUE APRN Mar 23, 2018 08:23
[2018-03-23] MEDS ORDERED: OXYC1TAB7 PO (08:24)
--- NOTE | 2018-03-23 08:27 | PDOC3 ---
Discharge Summary Visit Information Date of Admission: Mar 17, 2018 Date of Discharge: Mar 23, 2018 Admitting Diagnosis: right colono cancer Final Diagnosis right colon cancer Brief Hospital Course Allergies Allergies Coded Allergies Type Severity Reaction Last Updated Verified Penicillins Allergy Intermediate SWELL AND ITCH 03/17/18 Yes adhesive tape Allergy Intermediate 03/23/18 Yes Vital Signs Vital Signs Date Time Temp Pulse Resp B/P (MAP) Pulse Ox O2 Delivery O2 Flow Rate FiO2 03/23/18 03:00 98.7 86 18 119/67 (84) 97 Room Air 98.7 Brief Hospital Course Ms. Salmon is a 63 old female who presented with right colon cancer. She underwent Extended right hemicolectomy with primary anastomosis. Postoperatively bowel function returned. Tolerating diet. She had some hematuria shortly after surgery, evaluated by urology and will follow up as an outpatient Exam on discharge showed incision without erythema or signs of infection, abdomen soft and nontender. Discharge Information Condition at Discharge: Stable Follow Up: Weeks (2) Disposition/Orders: D/C to Home Scheduled Hydrochlorothiazide (Hydrochlorothiazide Capsule ) 12.5 Mg Capsule, 50 MG PO DAILY08 for DIURETIC, Ref 0 (Reported) Entered as Reported by: ARIAN ADAN on 01/27/18 0839 Last Taken: Unknown Dose on 03/16/18 Last Action: Reviewed on 03/17/18 0652 by STUART SENIOR Metoprolol Tartrate (Metoprolol Tartrate) 25 Mg Tablet, 25 MG PO BID for FOR HYPERTENSION, #60 Ref 0 (Reported) Entered as Reported by: DILIA MERLOS on 03/16/18 1141 Last Taken: Unknown Dose on 03/17/18 0500 Last Action: Continued on 0716 by WILFRED BUCK Omeprazole (Omeprazole) 40 Mg Capsule.dr, 1 CAP PO DAILY08, #30 Ref 3 (Reported) Entered as Reported by: ARIAN ADAN on 01/27/18 0838 Last Taken: Unknown Dose on 03/17/18 0530 Last Action: Reviewed on 0652 by STUART SENIOR Potassium Chloride (Potassium Chloride) 10 Meq Tablet.er, 10 MEQ PO DAILY, ( Reported) Entered as Reported by: DILIA MERLOS on 03/16/18 1141 Last Taken: Unknown Dose on 03/16/18 Last Action: Reviewed on 03/17/18651 by STUART SENIOR Scheduled PRN Cyclobenzaprine Hcl (Cyclobenzaprine Hcl) 10 Mg Tablet, 10 MG PO PRN BID PRN for PAIN, (Reported) Entered as Reported by: DILIA MERLOS on 03/16/18 122 Last Taken: Unknown Dose on 03/16/18 Last Action: Reviewed on 03/17/18651 by STUART SENIOR Oxycodone Hcl/Acetaminophen (Oxycodone-Acetaminophen 5-325) 1 Each Tablet, 1 TAB PO PRN Q4HRS PRN for MILD PAIN, 1ST CHOICE, #30 Ref 0 Prescribed by: Marcy Augustine on 03/23/18 0824 Tramadol Hcl (Tramadol Hcl) 50 Mg Tablet, 50 MG PO DAILY PRN for PAIN, Ref 0 ( Reported) Entered as Reported by: ARIAN ADAN on 02/20/18 123 Last Taken: Unknown Dose on 03/17/18 0500 Last Action: Reviewed on 651 by STUART SENIOR Miscellaneous Medications Butalb/Acetaminophen/Caffeine (Ogzaoa-Hwyftghg-Bdsa 50-300-40) 1 Each Capsule, 1 EACH PO, (Reported) Entered as Reported by: DILIA MERLOS on 03/16/18 114 Last Taken: Unknown Dose on 03/16/18 Last Action: Reviewed on 03/17/18651 by STUART SENIOR Discontinued Medications Cyclobenzaprine Hcl (Cyclobenzaprine Hcl) 10 Mg Tablet, 1 TAB PO BID, #90 ( Reported) Entered as Reported by: ARIAN ADAN on 01/27/18 0842 Last Action: Discontinued on 03/16/181220 by DILIA MERLOS [But/Apap/Caf] , 1 TAB PO PRN PRN for HEADACHE, (Reported) Entered as Reported by: ARIAN ADAN on 02/20/18 1231 Last Action: Discontinued on 03/16/18 114 by MARCY LOVING APRN Mar 23, 2018 08:27
[2018-03-23] MEDS: oxyCODONE/APAP 5/325 1 TAB TABLET PO PRN (08:32)
[2018-03-23] MEDS: METOPROLOL TART IMMED RELEASE 25 MG TABLET. PO SCH (08:33)
--- NOTE | 2018-03-23 09:17 | PDOC ---
SUBJECTIVE Subjective Patient doing well, no more hematuria or dysuria. Thinks that the cysto appointment scheduled for her will work out OK and she intends to make it. OBJECTIVE Objective Physical Exam: General appearance: Alert and Oriented Head: Normocephalic, without obvious abnormality Eyes: conjunctivae/corneas clear. PERRL, EOM's intact. Fundi benign Lungs: regular respirations, non labored breathing Vital Signs Vital Signs Date Time Temp Pulse Resp B/P (MAP) Pulse Ox O2 Delivery O2 Flow Rate FiO2 03/23/18 08:33 98 125/66 03/23/18 08:32 16 Room Air 03/23/18 07:00 98.7 98 20 125/66 (85) 98 Room Air 98.7 03/23/18 03:00 98.7 86 18 119/67 (84) 97 Room Air 98.7 03/22/18 23:00 98.6 73 18 121/74 (90) 95 Room Air 98.6 03/22/18 21:03 97 139/81 03/22/18 20:22 97 Room Air 03/22/18 20:00 Room Air 03/22/18 19:22 16 Room Air 03/22/18 19:00 98.2 97 18 139/81 (100) 98 Room Air 98.2 03/22/18 15:03 98.0 88 18 129/78 (95) 97 Room Air 98.0 03/22/18 11:04 98.3 73 20 109/71 (84) 97 Room Air 98.3 I & O Intake and Output 03/23/18 07:00 Intake Total 360 ml Balance 360 ml Intake Oral 360 ml # Voids 103 PHYSICAL EXAM Physical Exam Physical Exam: General appearance: Alert and Oriented Head: Normocephalic, without obvious abnormality Eyes: conjunctivae/corneas clear. PERRL, EOM's intact. Fundi benign Lungs: regular respirations, non labored breathing ASSESSMENT/PLAN Assessment/Plan Hematuria: Follow up for cystoscopy as planned.Pt has appointment card with time and date: cysto on 04/17/18 at 0940. Pt understands importance of completing cystoscopy, all questions answered. Currently patient has no dysuria or hematuria. Please notify nursing staff or call [facility] if these symptoms return. Urology will sign off at this time, but please call with questions or change in patient condition. JENNIFER WILKINSON STORAGE MANAGER Mar 23, 2018 09:17
[2018-03-23 11:00] VITALS: BP 101/60
== END 2018-03-23 12:10 | disposition home or self-care (01) | DRG 330 ==
LOC: OPSVCIP 05:56 → 4 NORTH 10:51
PROVIDERS: ADMIT Surgery; ATTEND Surgery
PROC: 0DTF0ZZ Resection of Right Large Intestine, Open Approach (ICD-10-PCS; principal; 2018-03-17 08:00)
DX: C18.2 Malignant neoplasm of ascending colon (principal); C18.3 Malignant neoplasm of hepatic flexure; K21.9 Gastro-esophageal reflux disease without esophagitis; I10 Essential (primary) hypertension; M19.90 Unspecified osteoarthritis, unspecified site; R31.0 Gross hematuria; Z88.0 Allergy status to penicillin; Z83.3 Family history of diabetes mellitus; Z91.041 Radiographic dye allergy status
CPT/HCPCS: 36415; 74178; 80048; 84132; 85007; 85025; 88309; A7015; C1765; J1100; J1885; J1956; J2001; J2250; J2270; J2370; J2405; J2704; J2710; J3010; J3490; J7120; 97116; 97530

== ENCOUNTER → 2018-04-27 | Outpatient (CLI) | payer BC ==
[~2018-04-27] MED LIST changes: +OXYC1TAB7 PO
[2018-04-27 10:18] LABS: CHOLESTEROL/HDL RATIO 3.2
== END | disposition home or self-care (01) ==
LOC: LAB 09:39
PROVIDERS: ATTEND Internal Medicine Cardiovascular Disease
DX: R07.9 Chest pain, unspecified (principal); I10 Essential (primary) hypertension; K21.9 Gastro-esophageal reflux disease without esophagitis; E87.6 Hypokalemia; Z86.2 Personal history of diseases of the blood and blood-forming organs and certain disorders involving the immune mechanism; Z87.11 Personal history of peptic ulcer disease; Z87.891 Personal history of nicotine dependence; Z88.0 Allergy status to penicillin; Z83.3 Family history of diabetes mellitus
CPT/HCPCS: 36415; 80061

== ENCOUNTER → 2018-04-27 | Outpatient (CLI) | payer BC ==
[~2018-04-27] MED LIST changes: +CONTRAST GIVEN. MC PRN; +IOHEXOL 300 MG/ML 100ML VIAL. IV ONE
--- NOTE | 2018-04-27 12:27 | RAD ---
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 Axial, coronal and sagittal reformatted images were generated. ---PQRS compliance statement - One or more of the following individualized dose reduction techniques were utilized for this study: 1. Automated exposure control 2. Adjustment of the mA and/or kV according to patient size 3. Use of iterative reconstruction technique--- FINDINGS: CHEST: The heart is not enlarged. No pericardial effusion. Irregular soft tissue density in the anterior mediastinum possibly thymic hyperplasia. No axillary lymphadenopathy. No mediastinal or hilar lymphadenopathy. A 9 mm hypodense left inferior pole thyroid lesion is seen extending into the thoracic inlet. Pectus deformity is seen. No pleural effusion or pneumothorax. No suspicious lung nodule or mass is seen. Mild right apical pleural/parenchymal scarring/thickening is seen. Minimal platelike opacities in the lingula likely scarring/atelectasis. Visualized Upper abdomen: Changes of abdominal surgery are seen with collection at the ventral midline measuring 3.7 x 1.8 possibly seroma. Calcified granulomas are seen within the spleen. Visualized upper abdomen is otherwise unremarkable. Bones: S-shaped scoliosis of the visualized thoracolumbar spine. No definite aggressive osseous lesion is seen IMPRESSION: 1. No thoracic lymphadenopathy. 2. No suspicious lung nodule or mass is seen. 3. Triangular anterior mediastinal soft tissue density prominence, possibly related to thymic hyperplasia. 4. 9 mm hypodense left lower pole thyroid lesion is seen. This can be correlated with ultrasound evaluation given the thoracic inlet extension Electronically signed by: Cam Oropeza MD (04/27/2018 12:24 PM) [facility]
== END | disposition home or self-care (01) ==
LOC: CT 09:54
PROVIDERS: ATTEND Internal Medicine Hematology & Oncology
DX: C18.3 Malignant neoplasm of hepatic flexure (principal); I10 Essential (primary) hypertension; E87.6 Hypokalemia; M41.85 Other forms of scoliosis, thoracolumbar region; E07.89 Other specified disorders of thyroid; K21.9 Gastro-esophageal reflux disease without esophagitis; Z87.11 Personal history of peptic ulcer disease; Z87.891 Personal history of nicotine dependence; Z86.2 Personal history of diseases of the blood and blood-forming organs and certain disorders involving the immune mechanism; Z79.899 Other long term (current) drug therapy; Z88.0 Allergy status to penicillin
CPT/HCPCS: 71260; Q9967

== ENCOUNTER → 2018-05-26 | Outpatient (CLI) | payer BC ==
[~2018-05-26] MED LIST changes: -CONTRAST GIVEN. MC PRN; -IOHEXOL 300 MG/ML 100ML VIAL. IV ONE
--- NOTE | 2018-05-26 16:18 | RAD ---
Examination: Ultrasound. HISTORY: History of thyroid nodule. COMPARISON: None available FINDINGS: The right lobe thyroid gland measures 4.6 x 1.2 x 1.3 cm. The left lobe of the thyroid lobe measures 3.9 x 1.1 x 1.2 cm. There is a 3 mm tiny cyst identified in the right lower thyroid gland. The isthmus measures 2.5 mm in AP dimension. There is a complex appearing nodule containing cystic foci in the inferior pole of the left lobe of the thyroid gland measuring 1.5 x 1.1 x 1.2 cm. IMPRESSION: Complex cystic nodule identified in the inferior pole of the left lobe thyroid gland measuring 1.5 cm. ACR TR 3, follow-up examination is recommended in 6 months. Electronically signed by: Jose Wharton MD (05/26/2018 4:14 PM) [id number]
== END | disposition home or self-care (01) ==
LOC: US 15:41
PROVIDERS: ATTEND Internal Medicine Hematology & Oncology
DX: E04.1 Nontoxic single thyroid nodule (principal); Z85.038 Personal history of other malignant neoplasm of large intestine
CPT/HCPCS: 76536

== ENCOUNTER → 2019-04-18 | Outpatient (CLI) | payer BC, MEDICARE ==
[~2019-04-18] MED LIST changes: +CONTRAST GIVEN. MC PRN; -HYDR12.53 PO; +HYDR12.575 PO; +IOHEXOL 240 MG/ML 50ML VIAL. IV ONE; +IOHEXOL 300 MG/ML 100ML VIAL. IV ONE
--- NOTE | 2019-04-18 11:13 | RAD ---
CT CHEST ABD PELVIS W/CONTRAST Indication: Malignant neoplasm of the hepatic flexure Technique: Postcontrast CT imaging was performed of the chest, abdomen, pelvis, multiplanar reconstruction images submitted. Oral contrast was also given. One or more of the following individualized dose reduction techniques were utilized for this examination: 1. Automated exposure control 2. Adjustment of the mA and/or kV according to patient size 3. Use of iterative reconstruction technique. CHEST: Comparison: April 27, 2018 Findings: There is again nodule along the inferior left thyroid gland with intrathoracic extent about 1.5 cm transverse by 1.6 cm CC, somewhat smaller although now more internal density present. There is no pleural or pericardial effusion, pneumothorax, infiltrate. There is no new suspicious pulmonary nodularity or new significant lymphadenopathy of the chest. There is again mild likely fibrotic change near the right apex. There is likely mild coronary calcification. There is again mild pectus excavatum. There is jdbm-px-kfkyfysz reverse S-shaped scoliosis of the thoracolumbar spine. There is multilevel thoracolumbar degenerative disc disease. IMPRESSION: 1. There is no new evidence of metastatic disease to the chest. 2. There is mild coronary calcification. There is again mild pectus excavatum. 3. There is again nodule along the inferior left thyroid gland with intrathoracic extent, somewhat smaller although now somewhat more hyperdense internally. Abdomen pelvis Comparison: March 20, 2018 FINDINGS: There are again splenic granulomas. Both kidneys enhance, no hydronephrosis. No new focal abnormality is identified of the liver or the pancreas. There is no new significant adrenal nodularity. Gallbladder is present without obvious intraluminal abnormality by CT. There is now broad ventral abdominal hernia with neck about 8.4 cm, contains segment of nondilated transverse colon and also a short segment of redundant, nondilated sigmoid colon. There is again bowel anastomotic site in the right abdomen. There is variable retained stool in the colon. Bowel is not significantly dilated. There is no free air or significant free fluid. There is again lobulated density eccentric to the left pelvis with focus of round density in this region about 4.9 cm AP by 3.9 cm transverse not significantly changed. No new significantly enlarged nodes are identified. There is relative wall prominence of the gastric pyloric region. There is multilevel lumbar degenerative disc disease and facet degenerative change. There is multilevel lumbar neural foramina compromise. There is lumbar levoscoliosis. IMPRESSION: 1. There is nonspecific wall prominence of the gastric pyloric region, underlying gastritis possible, mass considered less likely given circumferential involvement. 2. There is now broad ventral abdominal hernia containing short segments of transverse and redundant sigmoid colon. 3. There is no new significant lymphadenopathy or other convincing evidence of new metastatic disease. 4. There is stable appearance of lobulated density eccentric to the left pelvis, again consideration of adnexal/ovarian mass, other consideration of an exophytic uterine mass/fibroid. Ultrasound or MRI evaluation could be beneficial. Electronically signed by: Marquez Cheek MD (04/18/2019 11:10 AM) [facility]
== END | disposition home or self-care (01) ==
LOC: CT 07:45
PROVIDERS: ATTEND Internal Medicine Hematology & Oncology
DX: C18.3 Malignant neoplasm of hepatic flexure (principal); I10 Essential (primary) hypertension
CPT/HCPCS: 71260; 74177; Q9966; Q9967

== ENCOUNTER → 2019-04-18 | Outpatient (CLI) | payer BC, MEDICARE ==
[~2019-04-18] MED LIST changes: -CONTRAST GIVEN. MC PRN; -IOHEXOL 240 MG/ML 50ML VIAL. IV ONE; -IOHEXOL 300 MG/ML 100ML VIAL. IV ONE
--- NOTE | 2019-04-18 10:51 | CARD ---
MR#: [id number] Date of Study: 04/18/2019 Ordering Physician: ARSALAN HUFFMAN, Referring Physician: ARSALAN HUFFMAN Tech: Cherelle Leal RDCS APPROVED REPORT EXAM: Two-dimensional and M-mode echocardiogram with Doppler and color Doppler. Other Information Quality : GoodHR: 73bpm Rhythm : NSR INDICATION Hypertension/HCVD 2D DIMENSIONS RVDd3.2 (2.9-3.5cm)Left Atrium(2D)2.6 (1.6-4.0cm) IVSd1.0 (0.7-1.1cm)Aortic Root(2D)3.1 (2.0-3.7cm) LVDd3.4 (3.9-5.9cm)LVOT Diameter2.0 (1.8-2.4cm) PWd1.0 (0.7-1.1cm)LVDs2.4 (2.5-4.0cm) FS (%) 31.5 %SV29.5 ml LVEF(%)60.6 (>50%) M-Mode DIMENSIONS Left Atrium(MM)2.59 (2.5-4.0cm)Aortic Root2.91 (2.2-3.7cm) Aortic Valve AoV Peak Chester.108.5cm/sAoV VTI22.9cm AO Peak GR.4.7mmHgLVOT Peak Chester.68.1cm/s AO Mean GR.2mmHgAVA (VMAX)1.96cm2 KELLY (VTI)2.00cm2 Mitral Valve MV E Xpuswsmq48.8cm/sMV DECEL YJWW497hd MV A Keguspuv75.4cm/sE/A Ratio0.7 Pulmonary Valve PV Peak Tibqpyxi40.5cm/s Tricuspid Valve TR P. Mmpdfntu573lk/sRAP UOSPDCOM6rsYy TR Peak Gr.93uzLpLFGA06vmJa LEFT VENTRICLE The left ventricle is normal size. There is normal left ventricular wall thickness. The left ventricu lar systolic function is normal and the ejection fraction is within normal range. The Ejection Fracti on is 55-60%. There is normal LV segmental wall motion. Transmitral Doppler flow pattern is Grade I-a bnormal relaxation pattern. Apical trabeculae are noted. RIGHT VENTRICLE The right ventricle is normal size. There is normal right ventricular wall thickness. The right ventr icular systolic function is normal. ATRIA The left atrium size is normal. The right atrium size is normal. The interatrial septum is intact wit h no evidence for an atrial septal defect or patent foramen ovale as noted on 2-D or Doppler imaging. AORTIC VALVE The aortic valve is normal in structure and function. The aortic valve is trileaflet. Doppler and Col or Flow revealed no significant aortic regurgitation. There is no significant aortic valvular stenosi s. There is no aortic valvular vegetation. MITRAL VALVE The mitral valve is normal in structure and function. There is no evidence of mitral valve prolapse. There is no mitral valve stenosis. Doppler and Color Flow revealed trace mitral valve regurgitation. TRICUSPID VALVE The tricuspid valve is normal in structure and function. Doppler and Color Flow revealed mild tricusp id regurgitation. The PA pressure was estimated at 38 mmHg. There is no tricuspid valve prolapse or v egetation. There is no tricuspid valve stenosis. PULMONIC VALVE The pulmonary valve is normal in structure and function. Doppler and Color Flow revealed trace to mil d pulmonic valvular regurgitation. There is no pulmonic valvular stenosis. GREAT VESSELS The aortic root is normal in size. The ascending aorta is normal in size. The IVC is normal in size a nd collapses >50% with inspiration. PERICARDIAL EFFUSION There is no evidence of significant pericardial effusion. Critical Notification Critical Value: No <Conclusion> The left ventricle is normal size. The left ventricular systolic function is normal and the ejection fraction is within normal range. The Ejection Fraction is 55-60%. There is no significant aortic valvular stenosis. Doppler and Color Flow revealed no significant aortic regurgitation. Doppler and Color Flow revealed trace mitral valve regurgitation. Doppler and Color Flow revealed mild tricuspid regurgitation. The PA pressure was estimated at 38 mmHg. Signed by : Arsenio Valadez MD Electronically Approved : 04/18/2019 10:51:03
== END | disposition home or self-care (01) ==
LOC: ECHO 07:41
PROVIDERS: ATTEND Internal Medicine Cardiovascular Disease
DX: I08.8 Other rheumatic multiple valve diseases (principal); I10 Essential (primary) hypertension
CPT/HCPCS: 93306

== ENCOUNTER → 2019-05-24 | Outpatient (CLI) | payer BC, MEDICARE ==
[~2019-05-24] MED LIST changes: +OMEP40CA45 PO; -OMEP40CA5 PO
--- NOTE | 2019-05-24 13:55 | RAD ---
PELVIS W/TV History: Pelvic mass Comparison: None. Findings: Multiple transabdominal sonographic images of the pelvis are submitted. Pelvic structures are poorly seen. Transvaginal ultrasound: Multiple transvaginal sonographic images of pelvis are submitted. Uterus measured 6.1 x 2.9 x 5.9 cm. There is a mass of the left aspect of the uterus about 4 x 3.7 x 4.5 cm with internal vascularity on color Doppler imaging, poor visualization of the endometrium in this region. Visualized right aspect of the endometrium is thickened about 0.9 cm. Neither ovary could be visualized due to bowel gas. No free fluid is demonstrated. Impression: 1. There is a mass of the left uterus about 4.5 cm in greatest dimension most likely a fibroid, extent near the region of the left endometrium. Visualized aspect of the right endometrium is thickened about 0.9 cm which could be due to hyperplasia, neoplasm not excluded. Electronically signed by: Marquez Cheek MD (05/24/2019 1:52 PM) [facility]
== END | disposition home or self-care (01) ==
LOC: US 08:46
PROVIDERS: ATTEND Internal Medicine Hematology & Oncology
DX: R19.09 Other intra-abdominal and pelvic swelling, mass and lump (principal)
CPT/HCPCS: 76830; 76856

== ENCOUNTER → 2019-07-04 | Day surgery (SDC) | payer BC, MEDICARE ==
[~2019-07-04] MED LIST changes: +IV RINGERS,LACTATED 1000ML 1,000 ML IV ONE; +LIDOCAINE 2% PF 5 ML VIAL. ONE; -POTA10TA12 PO; +POTASSIUM CHLO10 ME1 PO; +PROPOFOL 40 ML IV ONE; +ePHEDrine PF IN SALINE 50 MG/10 ML SYRINGE. IV ONE
[2019-07-04 10:30] VITALS: BP 143/78
--- NOTE | 2019-07-04 11:50 | HP ---
ADMIT DATE: 07/04/2019 REASON FOR EVALUATION: History of colon cancer, status post resection. HISTORY OF PRESENT ILLNESS: This is a 64-year-old female with past medical history significant for colon cancer, status post right hemicolectomy as well as gastroesophageal reflux disease, high blood pressure, and gastroesophageal reflux disease, seen for surveillance colon examination. She has undergone resection and did not require any adjuvant therapy. Bowel habits, weight, and appetite are all regular. PAST MEDICAL HISTORY: Colon cancer, gastroesophageal reflux disease, arthritis, and high blood pressure. ALLERGIES: PENICILLIN. MEDICATIONS: Include cyclobenzaprine, hydrochlorothiazide, metoprolol, omeprazole, potassium chloride, and tramadol. FAMILY HISTORY: Significant for breast cancer with her sister, cerebrovascular accident with her brother, diabetes with her brother, and hypertension in multiple family members. SOCIAL HISTORY: Nonsmoker, social drinker. PAST SURGICAL HISTORY: She is status post hemicolectomy. REVIEW OF SYSTEMS: Per records. PHYSICAL EXAMINATION: GENERAL: Reveals a well-nourished, well-developed -[place] female, who is alert, cooperative, in no acute distress. VITAL SIGNS: Temperature 97, pulse 107, respirations 20. HEENT: Reveals normocephalic, atraumatic head. Pupils and extraocular muscles are not tested. Sclerae are anicteric. NECK: Supple. LUNGS: Clear. CARDIOVASCULAR: Reveals an S1 and S2 without S3, S4, or appreciable murmur. ABDOMEN: Soft abdomen, normal bowel sounds, without appreciable hepatosplenomegaly with midline surgical incision. EXTREMITIES: Reveal no cyanosis, clubbing, or edema. IMPRESSION: History of colon cancer, status post resection. PLAN: Surveillance examination is recommended at this time. Risks and benefits have been discussed with the patient including risk of hemorrhage and perforation. She is willing to proceed. BALDOMERO SOLORZANO MD DR: MEAGHAN/trinidad JOB#: [id number] / [id number]
--- NOTE | 2019-07-06 18:06 | PATHOLOGY ---
[facility] Accession Number: [id number] . 01 Material submitted: . sigmoid colon - SIGMOID COLON POLYP . 01 Clinical history: . Pre-OP DX: Family history colon cancer Post-OP DX: Polyp . 02 Diagnosis: Colon biopsy, sigmoid colon polyp: - Juvenile polyp. (JPM:rosario; 07/06/2019) QMS 07/06/2019 1342 Local . 02 Comment: There are no adenomatous changes or evidence of malignancy. . 02 Electronically signed: . Niranjan Mercedes MD, Pathologist NPI- [id number] . 01 Gross description: . Received in formalin labeled "Mary Salmon, sigmoid colon polyp BX," is a 1.3 x 0.9 x 0.6 cm polypoid piece of harrison soft tissue. The margin is inked and the tissue is sectioned perpendicular to the margin and submitted entirely in cassette A1. (TSD; 07/04/2019) TOB/TOB 07/04/2019 1843 Local . 02 Pathologist provided ICD-10: K63.5 . 02 CPT . 017764 Specimen Comment: A courtesy copy of this report has been sent to [phone], [phone] Specimen Comment: [id number] Specimen Comment: Report sent to / DR MUELLER Specimen Comment: Report sent to Performed at: 01 [facility] [address], [place] [id number] MD Jeremy Suarez MD Phone: [phone] Performed at: 02 [facility] [address] [place], [place] [id number] MD Niranjan Mercedes MD Phone: [phone]
== END | disposition home or self-care (01) ==
LOC: SURG 07:55
PROVIDERS: ATTEND Internal Medicine Gastroenterology
DX: Z08 Encounter for follow-up examination after completed treatment for malignant neoplasm (principal); K63.5 Polyp of colon; K64.0 First degree hemorrhoids; K21.9 Gastro-esophageal reflux disease without esophagitis; M19.90 Unspecified osteoarthritis, unspecified site; I10 Essential (primary) hypertension; Z88.0 Allergy status to penicillin; Z79.899 Other long term (current) drug therapy; Z86.010 Personal history of colon polyps; Z80.3 Family history of malignant neoplasm of breast; Z82.3 Family history of stroke; Z83.3 Family history of diabetes mellitus; Z82.49 Family history of ischemic heart disease and other diseases of the circulatory system; Z72.89 Other problems related to lifestyle; Z90.49 Acquired absence of other specified parts of digestive tract; Z98.0 Intestinal bypass and anastomosis status
CPT/HCPCS: 45385; 88305; J0171; J2001; J2704

== ENCOUNTER → 2019-08-06 | Outpatient (CLI) | payer BC, MEDICARE ==
[2019-07-04 10:30] VITALS: BP 143/78
[~2019-08-06] MED LIST changes: -IV RINGERS,LACTATED 1000ML 1,000 ML IV ONE; -LIDOCAINE 2% PF 5 ML VIAL. ONE; -PROPOFOL 40 ML IV ONE; -ePHEDrine PF IN SALINE 50 MG/10 ML SYRINGE. IV ONE
--- NOTE | 2019-08-06 14:55 | KCIC ---
EXAM: Lumbar spine, 3 views. HISTORY: Pain. COMPARISON: None. FINDINGS: 3 views of the lumbar spine are obtained. There is lumbar levoscoliosis centered at L3. There is mild retrolisthesis of L5 on S1. There is degenerative endplate remodeling with disc space narrowing, osteophytosis, facet arthropathy and vacuum phenomenon at all levels. IMPRESSION: 1. Severe multilevel degenerative change involving the lumbar spine. 2. Lumbar scoliosis. Electronically signed by: Candace Grubbs MD (08/06/2019 2:52 PM) [place] [id number]
--- NOTE | 2019-08-06 17:45 | KCIC ---
Three-view right knee radiographs 08/06/2019 CLINICAL HISTORY: Right knee pain and swelling. AP, lateral and oblique digital radiographs of the right knee were obtained. No fracture or dislocation of the right knee is seen. Small bony loose bodies are seen within the knee joint near the intercondylar notch. Moderate degenerative changes are seen involving the medial compartment of the left knee. A small osteochondral defect is seen involving the medial femoral condyle. There is a small suprapatellar joint effusion. IMPRESSION: Degenerative changes are seen involving the right knee as discussed above. No acute osseous abnormality is seen. Electronically signed by: Akhil Chacon MD (08/06/2019 5:42 PM) [facility]
== END | disposition home or self-care (01) ==
LOC: KCIC 13:54
PROVIDERS: ATTEND Nurse Practitioner
DX: M17.11 Unilateral primary osteoarthritis, right knee (principal); M47.816 Spondylosis without myelopathy or radiculopathy, lumbar region; G89.29 Other chronic pain; M41.86 Other forms of scoliosis, lumbar region; M21.961 Unspecified acquired deformity of right lower leg; M25.461 Effusion, right knee
CPT/HCPCS: 72100; 73562

== ENCOUNTER → 2020-02-06 | Outpatient (CLI) | payer BC, MEDICARE ==
[2019-07-04 10:30] VITALS: BP 143/78
[2020-02-06 12:43] LABS: BASO # 0.1 x10^3/uL (0.0-0.2); BASO % 1 % (0-3); EOS # 0.2 x10^3/uL (0.0-0.7); EOS % 4 % (0-3); HEMATOCRIT 40.8 % (36.0-47.0); HEMOGLOBIN 13.6 g/dL (12.0-15.5); LYMPH # 2.3 x10^3/uL (1.0-4.8); LYMPH % 38 % (24-48); MEAN CORPUSCULAR HEMOGLOBIN 31 pg (25-35); MEAN CORPUSCULAR HGB CONC 33 g/dL (31-37); MEAN CORPUSCULAR VOLUME 94 fL (79-100); MONO # 0.4 x10^3/uL (0.0-1.1); MONO % 7 % (0-9); NEUT # 3.1 x10^3/uL (1.8-7.7); NEUT % 51 % (31-73); PLATELET COUNT 257 x10^3/uL (140-400); RED BLOOD COUNT 4.36 x10^6/uL (3.50-5.40); RED CELL DISTRIBUTION WIDTH 14.1 % (11.5-14.5)
[2020-02-06 13:13] LABS: ALBUMIN 3.8 g/dL (3.4-5.0); ALBUMIN/GLOBULIN RATIO 0.9 (1.0-1.7); CREATININE 1.2 mg/dL (0.6-1.0); GFR 54.4; POTASSIUM 3.9 mmol/L (3.5-5.1); TOTAL BILIRUBIN 0.4 mg/dL (0.2-1.0); TOTAL PROTEIN 8.1 g/dL (6.4-8.2)
== END | disposition home or self-care (01) ==
LOC: LAB 12:05
PROVIDERS: ATTEND Internal Medicine Hematology & Oncology
DX: C18.3 Malignant neoplasm of hepatic flexure (principal)
CPT/HCPCS: 36415; 80053; 82378; 82607; 82728; 83540; 83550; 85025

== ENCOUNTER → 2020-03-27 | Outpatient (CLI) | payer BC, MEDICARE ==
[2019-07-04 10:30] VITALS: BP 143/78
[~2020-03-27] MED LIST changes: +CONTRAST GIVEN. MC PRN; +IOHEXOL 240 MG/ML 50ML VIAL. PO ONE; +IOHEXOL 300 MG/ML 100ML VIAL. IV ONE
--- NOTE | 2020-03-27 14:06 | RAD ---
EXAM: CT OF THE CHEST, ABDOMEN AND PELVIS WITH CONTRAST. HISTORY: Colon cancer. TECHNIQUE: Computed tomography of the chest, abdomen and pelvis was performed after the intravenous administration of iodinated contrast. One or more of the following individualized dose reduction techniques were utilized for this examination: 1. Automated exposure control. 2. Adjustment of the mA and/or kV according to patient size. 3. Use of iterative reconstruction technique. COMPARISON: 04/18/2019. FINDINGS: Bone windows reveal no suspicious lesions. There are no pathologically enlarged mediastinal or axillary lymph nodes. Calcified mediastinal lymph nodes are likely secondary to old granulomatous disease. There is no pleural or pericardial effusion. The heart is not enlarged. A nodule along the inferior aspect of the left thyroid lobe is stable. A calcified granuloma in the left upper lobe is stable. Small stable uncalcified nodules just superior to it measures 3 mm or less and are likely benign. There is mild atelectasis in the bases. There are calcified granulomas in the spleen. There are no suspicious hepatic lesions. The gallbladder, pancreas, adrenal glands and kidneys are unremarkable. There are no pathologically enlarged lymph nodes. Changes of right partial colectomy and ileocolonic anastomosis are noted. There is diastases of the rectus muscle superiorly containing a portion of the transverse colon without a full-thickness hernia. There is no ascites. A uterine fibroid is suspected measuring 3.2 cm. IMPRESSION: 1. No evidence of recurrent or metastatic disease. 2. Diastases of the rectus muscle superiorly without a full-thickness hernia. 3. Findings consistent with a 3.2 cm uterine fibroid. Pelvic sonography could further evaluate if there is persistent concern. Electronically signed by: Leah Talbert MD (03/27/2020 2:02 PM) [id number]
== END | disposition home or self-care (01) ==
LOC: CT 11:24
PROVIDERS: ATTEND Internal Medicine Hematology & Oncology
DX: C18.3 Malignant neoplasm of hepatic flexure (principal); E04.1 Nontoxic single thyroid nodule; D25.9 Leiomyoma of uterus, unspecified; R91.1 Solitary pulmonary nodule; D73.89 Other diseases of spleen; J98.4 Other disorders of lung
CPT/HCPCS: 71260; 74177; Q9966; Q9967

== ENCOUNTER → 2020-05-22 | Outpatient (CLI) | payer BC, MEDICARE ==
[2019-07-04 10:30] VITALS: BP 143/78
[~2020-05-22] MED LIST changes: -CONTRAST GIVEN. MC PRN; -IOHEXOL 240 MG/ML 50ML VIAL. PO ONE; -IOHEXOL 300 MG/ML 100ML VIAL. IV ONE
--- NOTE | 2020-05-22 16:45 | CARD ---
MR#: [id number] Date of Study: 05/22/2020 Ordering Physician: ARSALAN HUFFMAN, Referring Physician: ARSALAN HUFFMAN, Tech: Marilyn Carlson APPROVED REPORT EXAM: Two-dimensional and M-mode echocardiogram with Doppler and color Doppler. Other Information Quality : AverageHR: 67bpm INDICATION Hypertension/HCVD RISK FACTORS Asthma 2D DIMENSIONS RVDd3.5 (2.9-3.5cm)Left Atrium(2D)2.6 (1.6-4.0cm) IVSd1.1 (0.7-1.1cm)Aortic Root(2D)2.9 (2.0-3.7cm) LVDd3.6 (3.9-5.9cm)LVOT Diameter2.2 (1.8-2.4cm) PWd1.1 (0.7-1.1cm)LVDs2.5 (2.5-4.0cm) FS (%) 28.8 %SV29.8 ml LVEF(%)56.4 (>50%) Aortic Valve AoV Peak Chester.118.3cm/sAoV VTI22.6cm AO Peak GR.5.6mmHgLVOT Peak Chester.83.1cm/s LVOT VTI 19.90cmAO Mean GR.3mmHg KELLY (VMAX)1.44vy4MPG (VTI)3.32cm2 Mitral Valve MV E Aowoxikf93.5cm/sMV DECEL AUDK499ei MV A Wylxdjxw35.7cm/sMV ETP25zv E/A Ratio1.1MVA (PHT)4.49cm2 TDI E/Lateral E'9.9E/Medial E'10.6 Pulmonary Valve PV Peak Msimkzjs74.4cm/sPV Peak Grad.2mmHg Tricuspid Valve TR P. Gotvvpnm787yl/sRAP YUIXFQTT7nzHv TR Peak Gr.19eiLqYMXX13oxMs Pulmonary Vein S1 Lmgfwwiz60.3cm/sD2 Wwwpaedh52.4cm/s PVa vwzcelai231klvp LEFT VENTRICLE The left ventricle is normal size. There is normal left ventricular wall thickness. The left ventricu lar systolic function is normal and the ejection fraction is within normal range. The Ejection Fracti on is 50-55%. There is normal LV segmental wall motion. Transmitral Doppler flow pattern is Grade I-a bnormal relaxation pattern. RIGHT VENTRICLE The right ventricle is normal size. There is normal right ventricular wall thickness. The right ventr icular systolic function is normal. ATRIA The left atrium size is normal. The right atrium size is normal. The interatrial septum is intact wit h no evidence for an atrial septal defect or patent foramen ovale as noted on 2-D or Doppler imaging. AORTIC VALVE The aortic valve is thickened but opens well. Doppler and Color Flow revealed no significant aortic r egurgitation. There is no significant aortic valvular stenosis. MITRAL VALVE The mitral valve is normal in structure and function. There is no evidence of mitral valve prolapse. There is no mitral valve stenosis. Doppler and Color Flow revealed no mitral valve regurgitation note d. TRICUSPID VALVE The tricuspid valve is normal in structure and function. Doppler and Color Flow revealed trace tricus pid regurgitation with an estimated PAP of 27 mmHg. There is no tricuspid valve stenosis. PULMONIC VALVE The pulmonic valve is not well visualized. Doppler and Color Flow revealed trace pulmonic valvular re gurgitation. GREAT VESSELS The aortic root is normal in size. The ascending aorta is normal in size. The IVC is normal in size a nd collapses >50% with inspiration. PERICARDIAL EFFUSION There is no evidence of significant pericardial effusion. Critical Notification Critical Value: No <Conclusion> The left ventricle is normal size. The left ventricular systolic function is normal and the ejection fraction is within normal range. The Ejection Fraction is 50-55%. Doppler and Color Flow revealed no significant aortic regurgitation. There is no significant aortic valvular stenosis. Doppler and Color Flow revealed no mitral valve regurgitation noted. Doppler and Color Flow revealed trace tricuspid regurgitation with an estimated PAP of 27 mmHg. Signed by : Arsenio Valadez MD Electronically Approved : 05/22/2020 16:44:46
== END ==
LOC: ECHO 09:49
PROVIDERS: ATTEND Internal Medicine Cardiovascular Disease
DX: I10 Essential (primary) hypertension (principal)
CPT/HCPCS: 93306